=== PATIENT | female | born 1975 | race Caucasian/White ===

== ENCOUNTER 2017-03-07 16:50 | Emergency (ER) | payer OTHER ==
[~2017-03-07] VITALS: Ht 182.9 cm; Wt 109.8 kg
[~2017-03-07 16:50] MED LIST: ADVIN50050 INH; CLON1TAB3 PO; EFFSR150 PO; EFFSR75 PO; SNG10 PO
[2017-03-07 17:03] VITALS: TEMP 36.8; Ht 182.9 cm; Wt 109.8 kg
[2017-03-07] MEDS ORDERED: KETOROLAC TROMETHAMINE 30 MG/ML VIAL IV STA (17:27)
[2017-03-07] MEDS ORDERED: ONDANSETRON INJ 2 MG/ML 2 ML VIAL IV STA ×2 (17:27→19:43)
[2017-03-07 17:51] LABS: BASO % 0.7 %; BASO ABS # 0.07 K/uL (0-0.2); COMPLETE YES; EOS % 2.2 %; HEMATOCRIT 40.4 % (37-47); IG% 0.2 %; LYMPH ABS # 2.59 K/uL (1.2-3.4); MEAN CELL VOLUME 87.6 fL (80-100); MEAN CORPUSCULAR HEMOGLOBIN 30.6 pg (25-34); MEAN CORPUSCULAR HGB CONC 34.9 g/dl (32-36); MEAN PLATELET VOLUME 9.2 fL (7.4-10.4); MONO % 8.6 %; NEUT % 62.3 %; PLATELET COUNT 322 K/uL (130-400); RED BLOOD COUNT 4.61 M/uL (4.2-5.4); WHITE BLOOD COUNT 9.95 K/uL (4.8-10.8)
[2017-03-07 17:57] LABS: URINE APPEARANCE CLEAR (CLEAR); URINE BILIRUBIN NEG (NEG); URINE COLOR YELLOW; URINE EPITHELIAL CELL AUTO 0-5 /lpf (0-5); URINE NITRITE NEG (NEG); URINE PH 5.5 (4.5-7.5); URINE SPECIFIC GRAVITY 1.012 (1.000-1.030); UROBILINOGEN NEG (NEG); ZZUR CULT IF INDIC CLEAN CATCH NO
[2017-03-07 17:58] LABS: MANUAL MICROSCOPIC REQUIRED? NO; REVIEW REQ? NO
[2017-03-07 18:06] LABS: BUN/CREATININE RATIO 23.6 (10-20); CALCIUM 9.3 mg/dl (8.5-10.1); CREATININE 0.9 mg/dl (0.60-1.20); POTASSIUM 3.5 mmol/L (3.5-5.1)
--- NOTE | 2017-03-07 18:14 | DIAGNOSTIC IMAGING REPORT ---
CT SCAN OF THE ABDOMEN AND PELVIS WITHOUT IV CONTRAST CLINICAL HISTORY: Bilateral flank pain. COMPARISON STUDY: Abdominal CT dated 06/03/2007. TECHNIQUE: CT scan of the abdomen and pelvis is performed from the lung bases to the proximal femora. Images are reviewed in the axial, sagittal, and coronal planes. IV contrast was not administered for this examination as per the referring clinician. A dose lowering technique was utilized adhering to the principles of ALARA. CT DOSE: 1468.08 mGy.cm FINDINGS: Lung bases: The heart is normal in size and without pericardial effusion. The lung bases are clear. Liver: The unenhanced liver is normal in size, contour, and attenuation. There is no intrahepatic biliary ductal dilatation. Gallbladder: Surgically absent noting clips in the gallbladder fossa. Spleen: Normal in size and attenuation. Pancreas: Unremarkable. Adrenal glands: Unremarkable. Kidneys: The unenhanced kidneys are normal in size. There is a 4 mm obstructing calculus at the left vesicoureteral junction seen on image #381. There is no associated hydronephrosis. There is an additional punctate nonobstructing calculus in the lower pole of left kidney. There are 2 nonobstructing right renal calculi measuring up to 4 mm. There is no evidence of contour deforming renal mass lesion. Abdominal vasculature: The abdominal aorta is normal in course and caliber. Bowel: There are postoperative changes from subtotal colectomy with ileocolic anastomosis. No bowel obstruction is seen. Peritoneum: There is no intraperitoneal free air or abdominal ascites. There is a fat-containing umbilical hernia. Surgical clips are noted in the retroperitoneum as well as throughout the mesentery. Lymphadenopathy: None. Pelvic viscera: The bladder is decompressed and grossly unremarkable. Uterus and adnexa are normal as visualized. Small ovarian follicles are observed. Skeletal structures: No lytic or blastic lesions are seen. IMPRESSION: 1. There is a 4 mm calculus at the left vesicoureteral junction. There is no associated left-sided hydronephrosis. 2. Additional bilateral nonobstructing renal calculi as above. 3. There are postoperative changes from subtotal colectomy with ileocolic anastomosis. No bowel obstruction is seen. 4. Additional findings as above. Electronically signed by: Juan James M.D. 03/07/2017 6:13 PM Dictated Date/Time: 03/07/2017 6:06 PM
[2017-03-07] MEDS ORDERED: ACETAMINOPHEN IV 100 ML IV STA (18:21)
[2017-03-07] MEDS ORDERED: AMPH30CA3 PO (18:26)
[2017-03-07] MEDS ORDERED: AMPH30TA2 PO (18:27)
[2017-03-07] MEDS ORDERED: DPPRI400 INJ (18:28)
[2017-03-07] MEDS ORDERED: VNTHFA/IN INH (18:30)
[2017-03-07] MEDS ORDERED: TAMS0.4C38 PO (18:31)
[2017-03-07] MEDS ORDERED: NAPR-1169 PO (18:32)
[2017-03-07] MEDS ORDERED: OXYC-57 PO (18:33)
[2017-03-07] MEDS ORDERED: MoRPHine SULFATE 10 MG/ML CARP/VIAL IV STA (19:43)
--- NOTE | 2017-03-07 19:54 | EMERGENCY ROOM VISIT NOTE ---
History First contact with patient: 17:07 Chief Complaint: KIDNEY STONE Stated Complaint: KIDNEY STONES, PAIN, DISTENDED ABDOMEN, NAUSEA History of Present Illness The patient is a 41 year old female who presents to the Emergency Room with complaints of severe bilateral flank pain with history of kidney stone. The patient has been seen at 2 emergency departments in the past 10 days, where she was diagnosed with a kidney stone in the left UVJ. She states the pain has been constant over the past 10 days, but seemed to be worsening tonight. She has been intermittently taking narcotics, and has consistently been taking Flomax and naproxen for her symptoms. She states the naproxen has not been helping, but she is hesitant to take more narcotics, as she is concerned that it makes her too tired and she is unable to work. The patient was initially seen at [facility] emergency department, where a urinalysis showed hematuria. The provider suspected a kidney stone, so discharged her on Flomax and pain medication. Approximately 2 hours later, the patient began experiencing worsening pain, so she went to [facility] [place] emergency room, where a CT scan was performed. The CT scan showed a 4 mm stone in the left UVJ. She was also advised that she has some hydronephrosis and multiple other smaller stones in bilateral kidneys while in the emergency department. She states she was discharged with more pain medication, but states she continues to experience the pain. The patient does not believe that she has passed the stone, and she states now the pain is in the bilateral flanks. She describes it as a constant burning, dull ache, but intermittently becomes very sharp, "like I'm in labor". The patient states this morning, she did have one episode of dysuria. She has also had nausea, decreased appetite, and her abdomen feels full and distended. She does have an appointment scheduled for Tuesday with [facility] urology, but did not feel that she was able to wait. The patient denies obvious hematuria, dysuria, significant pelvic pain, , diarrhea or constipation, chest pain, dyspnea, or other associated symptoms. Review of Systems A complete 10 point review of systems was reviewed with the patient with pertinent positives and negatives as per history of present illness. All else were negative. Past Medical/Surgical History Kidney stones Social History Smoking Status: Current Every Day Smoker Smokeless Tobacco Use: No Alcohol Use: none Drug Use: none Marital Status: single Occupation Status: employed Current/Historical Medications Scheduled Amphetamine-Dextroamphetamine 30MG (Adderall Xr 30MG), 30 MG PO QAM Amphetamine-Dextroamphetamine 30MG (Adderall 30MG), 30 MG PO QAFTERNOON Medroxyprogesterone Acetate (Depo-Provera), 400 MG INJ Q3MO Naproxen (Naprosyn), 500 MG PO BID Ondasetron Odt (Zofran Odt), 4 MG SL Q6H Tamsulosin Hcl (Flomax), 0.4 MG PO DAILY Scheduled PRN Albuterol Hfa (Ventolin Hfa), 2 PUFFS INH Q6H PRN for SOB/Wheezing Oxycodone Ir (Roxicodone Ir), 1-2 TAB PO Q4H PRN for Pain Oxycodone/Acetaminophen 5MG/325MG (Percocet 5MG/325MG), 1 TABLET PO Q6H PRN for Pain Physical Exam Vital Signs Date Time Temp Pulse Resp B/P (MAP) Pulse Ox O2 Delivery O2 Flow Rate FiO2 03/07/17 21:14 78 16 132/72 96 Room Air 03/07/17 19:16 94 16 122/78 99 Room Air 03/07/17 17:42 94 20 142/88 99 Room Air 03/07/17 17:03 36.8 108 18 139/85 100 Room Air Physical Exam VITALS: Vitals are noted on the nurse's note and reviewed by myself. Vital signs stable. GENERAL: This is a 41-year-old white female, in no acute distress, nondiaphoretic, well-developed well-nourished. SKIN: The skin was without rashes, erythema, edema, or bruising. There is no tenting of the skin. Capillary reflex less than 2 seconds. HEAD: Normocephalic atraumatic. EARS: External auditory canals clear, tympanic membranes pearly leyva without erythema or effusion bilaterally. EYES: Pupils equal round and reactive to light and accommodation. Conjunctivae without injection, sclerae without icterus. Extraocular movements intact. NOSE: Patent, turbinates without inflammation or discharge. No sinus tenderness. MOUTH: Mucous membranes moist. Tonsils are not enlarged. Pharynx without erythema or exudate. Uvula midline. Airway patent. Tongue does not deviate. NECK: Supple without nuchal rigidity. No lymphadenopathy. No thyromegaly. Cervical spine is nontender. No JVD. HEART: Regular rate and rhythm without murmurs gallops or rubs. LUNGS: Clear to auscultation bilaterally without wheezes, rales or rhonchi. No dullness to percussion. No retractions or accessory muscle use. ABDOMEN: Positive bowel sounds x 4. Normal tympanic percussion. Soft, nontender, without masses or organomegaly. Alex sign negative. No guarding or rebound tenderness. Positive CVA tenderness on the right. MUSCULOSKELETAL: No muscle atrophy, erythema, or edema noted. Full range of motion without joint tenderness in all extremities. No tenderness to palpation. Normal gait. Strength 5/5 throughout. NEURO: Patient was alert and oriented to person place and time. Normal sensation to light and sharp touch. Deep tendon reflexes 2+ throughout. No focal neurological deficits. Medical Decision & Procedures ER Provider Diagnostic Interpretation: CT SCAN OF THE ABDOMEN AND PELVIS WITHOUT IV CONTRAST CLINICAL HISTORY: Bilateral flank pain. COMPARISON STUDY: Abdominal CT dated 06/03/2007. TECHNIQUE: CT scan of the abdomen and pelvis is performed from the lung bases to the proximal femora. Images are reviewed in the axial, sagittal, and coronal planes. IV contrast was not administered for this examination as per the referring clinician. A dose lowering technique was utilized adhering to the principles of ALARA. CT DOSE: 1468.08 mGy.cm FINDINGS: Lung bases: The heart is normal in size and without pericardial effusion. The lung bases are clear. Liver: The unenhanced liver is normal in size, contour, and attenuation. There is no intrahepatic biliary ductal dilatation. Gallbladder: Surgically absent noting clips in the gallbladder fossa. Spleen: Normal in size and attenuation. Pancreas: Unremarkable. Adrenal glands: Unremarkable. Kidneys: The unenhanced kidneys are normal in size. There is a 4 mm obstructing calculus at the left vesicoureteral junction seen on image #381. There is no associated hydronephrosis. There is an additional punctate nonobstructing calculus in the lower pole of left kidney. There are 2 nonobstructing right renal calculi measuring up to 4 mm. There is no evidence of contour deforming renal mass lesion. Abdominal vasculature: The abdominal aorta is normal in course and caliber. Bowel: There are postoperative changes from subtotal colectomy with ileocolic anastomosis. No bowel obstruction is seen. Peritoneum: There is no intraperitoneal free air or abdominal ascites. There is a fat-containing umbilical hernia. Surgical clips are noted in the retroperitoneum as well as throughout the mesentery. Lymphadenopathy: None. Pelvic viscera: The bladder is decompressed and grossly unremarkable. Uterus and adnexa are normal as visualized. Small ovarian follicles are observed. Skeletal structures: No lytic or blastic lesions are seen. IMPRESSION: 1. There is a 4 mm calculus at the left vesicoureteral junction. There is no associated left-sided hydronephrosis. 2. Additional bilateral nonobstructing renal calculi as above. 3. There are postoperative changes from subtotal colectomy with ileocolic anastomosis. No bowel obstruction is seen. 4. Additional findings as above. Electronically signed by: Juan James M.D. 03/07/2017 6:13 PM Dictated Date/Time: 03/07/2017 6:06 PM CBC without leukocytosis, anemia, thrombocytopenia. PRP without renal or electrolyte abnormalities. U/A showed trace blood without signs of infection. Laboratory Results 03/07/17 17:35 Red Blood Count 4.61, Mean Corpuscular Volume 87.6, Mean Corpuscular Hemoglobin 30.6, Mean Corpuscular Hemoglobin Concent 34.9, Mean Platelet Volume 9.2, Neutrophils (%) (Auto) 62.3, Lymphocytes (%) (Auto) 26.0, Monocytes (%) (Auto) 8.6, Eosinophils (%) (Auto) 2.2, Basophils (%) (Auto) 0.7, Neutrophils # (Auto) 6.19, Lymphocytes # (Auto) 2.59, Monocytes # (Auto) 0.86, Eosinophils # (Auto) 0.22, Basophils # (Auto) 0.07 03/07/17 17:35 Test 03/07/17 17:35 03/07/17 17:36 White Blood Count 9.95 K/uL (4.8-10.8) Red Blood Count 4.61 M/uL (4.2-5.4) Hemoglobin 14.1 g/dL (12.0-16.0) Hematocrit 40.4 % (37-47) Mean Corpuscular Volume 87.6 fL (80-100) Mean Corpuscular Hemoglobin 30.6 pg (25-34) Mean Corpuscular Hemoglobin Concent 34.9 g/dl (32-36) Platelet Count 322 K/uL (130-400) Mean Platelet Volume 9.2 fL (7.4-10.4) Neutrophils (%) (Auto) 62.3 % Lymphocytes (%) (Auto) 26.0 % Monocytes (%) (Auto) 8.6 % Eosinophils (%) (Auto) 2.2 % Basophils (%) (Auto) 0.7 % Neutrophils # (Auto) 6.19 K/uL (1.4-6.5) Lymphocytes # (Auto) 2.59 K/uL (1.2-3.4) Monocytes # (Auto) 0.86 K/uL (0.11-0.59) Eosinophils # (Auto) 0.22 K/uL (0-0.5) Basophils # (Auto) 0.07 K/uL (0-0.2) RDW Standard Deviation 40.9 fL (36.4-46.3) RDW Coefficient of Variation 12.7 % (11.5-14.5) Immature Granulocyte % (Auto) 0.2 % Immature Granulocyte # (Auto) 0.02 K/uL (0.00-0.02) Anion Gap 8.0 mmol/L (3-11) Est Creatinine Clear Calc Drug Dose 115.2 ml/min Estimated GFR () 92.7 Estimated GFR (Non- 80.0 BUN/Creatinine Ratio 23.6 (10-20) Calcium Level 9.3 mg/dl (8.5-10.1) Urine Color YELLOW Urine Appearance CLEAR (CLEAR) Urine pH 5.5 (4.5-7.5) Urine Specific [place] 1.012 (1.000-1.030) Urine Protein NEG (NEG) Urine Glucose (UA) NEG (NEG) Urine Ketones NEG (NEG) Urine Occult Blood TRACE (NEG) Urine Nitrite NEG (NEG) Urine Bilirubin NEG (NEG) Urine Urobilinogen NEG (NEG) Urine Leukocyte Esterase NEG (NEG) Urine WBC (Auto) 1-5 /hpf (0-5) Urine RBC (Auto) 0-4 /hpf (0-4) Urine Hyaline Casts (Auto) 0 /lpf (0-5) Urine Epithelial Cells (Auto) 0-5 /lpf (0-5) Urine Bacteria (Auto) NEG (NEG) Medications Administered Medications (Trade) Dose Ordered Sig/Nicole Route Start Time Stop Time Status Last Admin Dose Admin Ketorolac Tromethamine (Toradol Inj) 30 mg NOW STAT IV 03/07/17 17:27 03/07/17 17:29 DC 03/07/17 17:42 30 MG Ondansetron HCl (Zofran Inj) 4 mg NOW STAT IV 03/07/17 17:27 03/07/17 17:29 DC 03/07/17 17:42 4 MG Acetaminophen 100 ml @ 400 mls/hr NOW STAT IV 03/07/17 18:21 03/07/17 18:35 DC 03/07/17 18:29 400 MLS/HR Morphine Sulfate (MoRPHine SULFATE INJ) 8 mg NOW STAT IV 03/07/17 19:43 03/07/17 19:45 DC 03/07/17 19:57 8 MG Ondansetron HCl (Zofran Inj) 4 mg NOW STAT IV 03/07/17 19:43 03/07/17 19:45 DC 03/07/17 19:58 4 MG Medical Decision The patient presents today complaining of similar left flank pain to what she has been experiencing over the past 10 days associated with a kidney stone. She is concerned because she has had previous kidney stones, all of which have passed within a few days. She states she has not been taking her pain medication consistently, but is instead only taking it when the pain is severe, and is not noticing significant improvement. While in the emergency department , a repeat workup was performed to rule out pyelonephritis, hydronephrosis, or other kidney stones. The repeat CT scan did show a 4 mm stone at the UVJ, and various other stones throughout the bilateral kidneys. There was no hydronephrosis on scan today. I did obtain the CT scan result from [facility], which did show left hydronephrosis with a 3-4 mm calcified stone in the left UVJ region. The patient had only trace blood, no signs of infection on her urinalysis. The patient was initially given 30 mg Toradol through the IV, and noted improvement in her pain from a 9 to a 5. She is appearing much more comfortable, and is able to lie still in bed. Prior to the pain medication, the patient was unable to find a comfortable position, and was up and moving around throughout the room due to the pain. At this time, the patient did request more pain medication, so I did discuss with her options including IV Tylenol versus narcotics. The patient does agree to proceed with some IV Tylenol at this time. I reenter the room, at which point the patient's male friend was at bedside. Prior to being able to talk with the patient, the friend questioned whether we were going to keep the patient here in the emergency department or if we were going to discharge her. I stated that I would like to speak with the patient regarding her wishes. Advised her of her normal labs, and discussed with her the options at this time include [place] for pain management or discharge home with pain medication. The patient states she would like me to contact urology to determine if there are any other treatments she should be completing at this time. I did contact the management and the urologist electronics commodity manager, and after over one hour in multiple attempts to contact him, Dr. Flores did contact me back, and states there are no other treatments necessary at this time for a 4 mm stone, and he did recommend pain medication, Flomax, and fluid treatment. He states the patient could be admitted for pain management, or discharged home with appropriate outpatient follow-up at her scheduled appointment on Tuesday. I did offer admission to the patient for pain control, and she declines. On discussion at bedside regarding options for inpatient versus outpatient treatment. I advised her that there is likely no procedures which will be performed inpatient, and she will be admitted for pain control. I advised her that she would most likely see urology as a consult, but it does appear that her clinical signs are improving. The patient states it [place] very close to [place], and she has children at home to take care of. She would like to go home, as I did discuss with her options for OTC pain management with OxyIR as needed for breakthrough pain. The patient does request IV pain medication prior to discharge, was given 8 mg morphine and 4 mg Zofran. She states this did significantly help with her pain. The patient is in agreement with this plan, and does wish to be discharged. I did speak with Dr. Vega regarding the workup, who is in agreement with the assessment and plan. Differential diagnosis includes ureteral stone, nephrolithiasis, urinary tract infection, pyelonephritis, hydronephrosis, malignancy, and others Medication Reconcilliation Current Medication List: was personally reviewed by me Blood Pressure Screening Patient's blood pressure: Normal blood pressure Impression Primary Impression: Obstruction of right ureteropelvic junction (UPJ) due to stone Departure Information Dispostion Home / Self-Care Condition GOOD Prescriptions Ondasetron Odt (ZOFRAN ODT) 4 Mg Tab 4 MG SL Q6H for Nausea, #6 TAB Prov: Itzel Iqbal PA-C 03/07/17 Oxycodone Ir (Roxicodone Ir) 5 Mg Tab 1-2 TAB PO Q4H Y for Pain, #15 TAB For Initial Treatment Prov: Itzel Iqbal PA-C 03/07/17 Referrals Yuan Christy M.D. (PCP) Patient Instructions ED Stone Renal W Coli, [facility] Additional Instructions You have been treated in the Emergency Department today for a Kidney Stone ( Nephrolithiasis). You have received pain medicine in the emergency department which impairs your ability to operate a vehicle. It is illegal for you to drive after receiving these medicines. You have been prescribed OxyIr to be used for pain control. This is a narcotic medication. You cannot drive or consume alcohol while on this medicine. This medicine should only be used for pain that cannot be controlled with over-the- counter pain medicines. You have been prescribed Zofran to be used for any nausea or vomiting. Take as prescribed. Use the Flomax 0.4 mg ONCE daily as prescribed. This medicine has been prescribed as it can help relax the smooth muscles of the urinary tract increasing transit time of the kidney stone. For pain control, you can use the following [id number] medicines (if >12 yo): Naproxen may be used for fever or pain. Use 500mg every 12 hours as needed. Take with food. Avoid using more than 1000mg in a 24 hour period. Do not use 1000mg per day for more than three consecutive days without physician direction. Prolonged inappropriate use can lead to stomach upset or ulcers. (AND/OR) Acetaminophen(Tylenol) may be used for fever or pain. Use 1000mg every six to eight hours as needed. Avoid using more than 3000mg in a 24 hour period. Follow-up with urology at your scheduled appointment on Tuesday. Return to the ED for worsening/intractable pain, nausea/vomiting. Return to the Emergency Department if your symptoms persist despite the treatment plan outlined above or if you develop the following symptoms: intractable pain, fever, chills, or large amounts of blood in your urine.
[2017-03-07] MEDS ORDERED: OXYC1TAB3 PO (20:55)
[2017-03-07] MEDS ORDERED: ONDA4TAB10 SL (20:55)
[2017-03-07 21:14] VITALS: BP 132/72; PULSE 78; O2SAT 96
== END 2017-03-07 21:25 | disposition home or self-care (01) ==
LOC: C.EDB 16:52 → C.EDA 21:25
DX: N13.5 Crossing vessel and stricture of ureter without hydronephrosis (principal); N20.1 Calculus of ureter; F17.210 Nicotine dependence, cigarettes, uncomplicated; Z79.899 Other long term (current) drug therapy

== ENCOUNTER → 2017-03-11 | Outpatient (CLI) | payer OTHER ==
[~2017-03-11] MED LIST changes: +ACET-1047 PO; -ADVIN50050 INH; +AMPH30CA3 PO; +AMPH30TA2 PO; -CLON1TAB3 PO; +DPPRI400 INJ; +DTR/5 PO; -EFFSR150 PO; -EFFSR75 PO; +IBUP-1450 PO; +NAPR-1169 PO; +ONDA4TAB10 SL; +OXYC-57 PO; +OXYC1TAB3 PO; -SNG10 PO; +SULF800T23 PO; +TAMS0.4C38 PO; +VNTHFA/IN INH
--- NOTE | 2017-03-11 13:52 | DIAGNOSTIC IMAGING REPORT ---
KUB HISTORY: Preoperative exam in a patient with nephrolithiasis. NEPHROLITHIASIS COMPARISON: CT abdomen and pelvis 03/07/2017. FINDINGS: The bowel gas pattern is non-obstructive. Cholecystectomy clips are noted in addition to surgical suture material of the left upper and right midabdomen. The previously noted bilateral nephrolithiasis are not well seen. 4 mm density of the left hemipelvis may correlate with the previous noted left ureterovesicular junction calculus. Phleboliths of the pelvis noted. Renal shadows are partially obscured by bowel gas. There is no organomegaly. No renal calculi. No ureteral calculi. No pneumoperitoneum or pneumatosis. No fracture. IMPRESSION: 1. Renal shadows are partially obscured by bowel gas. Previously noted nephrolithiasis not identified. 2. 4 mm calcification of the left hemipelvis may correlate with previously noted left ureterovesicular junction calculus. Electronically signed by: Arturo Valencia M.D. 03/11/2017 1:50 PM Dictated Date/Time: 03/11/2017 1:43 PM
--- NOTE | 2017-03-11 14:55 | DIAGNOSTIC IMAGING REPORT ---
CHEST 2 VIEWS ROUTINE CLINICAL HISTORY: NEPHROLITHIASIS preoperative evaluation COMPARISON STUDY: No previous studies for comparison. FINDINGS: The bones soft tissues and hemidiaphragms are normal. The cardiomediastinal silhouette is normal. The lungs are clear. The pulmonary vasculature is normal. IMPRESSION: Negative chest. The above report was generated using voice recognition software. It may contain grammatical, syntax or spelling errors. Electronically signed by: Agus Stephenson M.D. 03/11/2017 2:54 PM Dictated Date/Time: 03/11/2017 2:53 PM
== END | disposition home or self-care (01) ==
LOC: C.RAD 12:55
PROVIDERS: ATTEND Urology
DX: N20.0 Calculus of kidney (principal); N28.89 Other specified disorders of kidney and ureter

== ENCOUNTER 2017-03-12 23:09 | Inpatient (IN) | payer OTHER ==
[~2017-03-12] VITALS: Ht 182.9 cm; Wt 113.5 kg
[~2017-03-12 23:09] MED LIST changes: -ACET-1047 PO; -DTR/5 PO; -IBUP-1450 PO; -SULF800T23 PO
[2017-03-12] MEDS ORDERED: HYDROmorphone INJ 0.5 MG/0.5 ML SYR IV STA (23:37)
[2017-03-12] MEDS ORDERED: ONDANSETRON INJ 2 MG/ML 2 ML VIAL IV STA (23:37)
[2017-03-12] MEDS ORDERED: SODIUM CHLORIDE 0.9% 1000ML 1,000 ML IV STA (23:37)
--- NOTE | 2017-03-12 23:38 | EMERGENCY ROOM VISIT NOTE ---
History Report prepared by [place]: Abi Shaw Under the Supervision of: Kirby TrinidadO. First contact with patient: 23:25 Chief Complaint: KIDNEY STONE Stated Complaint: LEFT BACK PAIN, SHARP PAIN R LOWER ABDOMEN,NAUSEA History of Present Illness The patient is a 41 year old female who presents to the Emergency Room with complaints of a kidney stone starting 2 weeks ago. The patient states that she has had a kidney stone for 2 weeks that is 4 mm in size and is stuck between her ureter and bladder on the left side. She reports that she has had kidney stones before, but that this us the worst. She states that her previous stones passed in about 3 days. The patient reports that this is her third one in 16 months. She reports that she has Percocet at home, took one at 1830 which did not help. She states that she is scheduled for a lithotripsy in 2 weeks. The patient reports having vomiting but not fevers. She also reports that she is not urinating as much, and that her urine has been darker but has not had visible blood. Review of EMR: CT scan done March 07 showed a 4 mm stone at the left UVJ. Source of History: patient Onset: 2 weeks ago Position: other (kidney) Quality: other (stone ) Associated Symptoms: + vomiting, + urinary symptoms (not urinating as frequently ), No fevers Review of Systems See HPI for pertinent positives & negatives. A total of 10 systems reviewed and were otherwise negative. Past Medical & Surgical Medical Problems: (1) Depression (2) History of cocaine dependence (3) Kidney stones (4) Nephrolithiasis (5) Pyelonephritis Family History No pertinent family history Social History Smoking Status: Current Every Day Smoker Alcohol Use: none Drug Use: none Marital Status: single Occupation Status: employed Current/Historical Medications Scheduled Amphetamine-Dextroamphetamine 30MG (Adderall Xr 30MG), 30 MG PO QAM Amphetamine-Dextroamphetamine 30MG (Adderall 30MG), 30 MG PO QAFTERNOON Medroxyprogesterone Acetate (Depo-Provera), 400 MG INJ Q3MO Ondasetron Odt (Zofran Odt), 4 MG SL Q6H Tamsulosin Hcl (Flomax), 0.4 MG PO DAILY Scheduled PRN Acetaminophen (Mapap), 650 MG PO Q4H PRN for Pain or Fever Albuterol Hfa (Ventolin Hfa), 2 PUFFS INH Q6H PRN for SOB/Wheezing Ibuprofen (Motrin), 600 MG PO Q6H PRN for Pain Allergies Coded Allergies: Tramadol (Verified Adverse Reaction, Intermediate, N/V, 03/07/17) Physical Exam Vital Signs Date Time Temp Pulse Resp B/P (MAP) Pulse Ox O2 Delivery O2 Flow Rate FiO2 03/12/17 23:15 36.7 85 18 140/80 100 Room Air Physical Exam GENERAL: alert, uncomfortable appearing, well nourished, moderate distress, non- toxic EYE EXAM: normal conjunctiva, PERRL and EOM's grossly intact OROPHARYNX: no exudate, no erythema, lips, buccal mucosa, and tongue normal and mucous membranes are moist NECK: supple, no nuchal rigidity, no adenopathy, non-tender LUNGS: Clear to auscultation. Normal chest wall mechanics HEART: no murmurs, S1 normal and S2 normal ABDOMEN: abdomen soft, non-tender, normo-active bowel sounds, no masses, no rebound or guarding. BACK: Back is symmetrical on inspection and there is no deformity, no midline tenderness, no CVA tenderness. SKIN: no rashes and no bruising UPPER EXTREMITIES: upper extremities are grossly normal. LOWER EXTREMITIES: No pitting edema. NEURO EXAM: Normal sensorium, cranial nerves II-XII intact, normal speech, no weakness of arms, no weakness of legs. Medical Decision & Procedures ER Provider Diagnostic Interpretation: Radiology results have been interpreted by and reviewed by me. KUB X-Ray: Scattered air in stool. Surgical clips noted. No definite radiopaque stone seen. Radiology results have been interpreted by the radiologist and [facility]. US RENAL Nephrolithiasis. A 7 mm stone is seen in the distal left ureter at the UVJ with diminished left bladder jet compared to right and mild left hydronephrosis Laboratory Results Test 03/12/17 23:20 03/12/17 23:30 Urine Color YELLOW Urine Appearance CLEAR (CLEAR) Urine pH 5.0 (4.5-7.5) Urine Specific [place] 1.029 (1.000-1.030) Urine Protein NEG (NEG) Urine Glucose (UA) NEG (NEG) Urine Ketones NEG (NEG) Urine Occult Blood NEG (NEG) Urine Nitrite NEG (NEG) Urine Bilirubin NEG (NEG) Urine Urobilinogen NEG (NEG) Urine Leukocyte Esterase NEG (NEG) Prothrombin Time 10.0 SECONDS (9.0-12.0) Prothromb Time International Ratio 1.0 (0.9-1.1) Total Bilirubin 0.6 mg/dl (0.2-1) Aspartate Amino Transf (AST/SGOT) 26 U/L (15-37) Alanine Aminotransferase (ALT/SGPT) 47 U/L (12-78) Alkaline Phosphatase 185 U/L (45-117) Total Protein 7.7 gm/dl (6.4-8.2) Albumin 4.2 gm/dl (3.4-5.0) Globulin 3.5 gm/dl (2.5-4.0) Albumin/Globulin Ratio 1.2 (0.9-2) Laboratory results per my review. Medications Administered Medications (Trade) Dose Ordered Sig/Nicole Route Start Time Stop Time Status Last Admin Dose Admin Sodium Chloride 1,000 ml @ 999 mls/hr Q1H1M STAT IV 03/12/17 23:37 03/13/17 00:37 DC 03/12/17 23:51 999 MLS/HR Ondansetron HCl (Zofran Inj) 4 mg NOW STAT IV 03/12/17 23:37 03/12/17 23:40 DC 03/12/17 23:48 4 MG Hydromorphone HCl (Dilaudid Inj) 0.5 mg NOW STAT IV 03/12/17 23:37 03/12/17 23:40 DC 03/12/17 23:50 0.5 MG Hydromorphone HCl (Dilaudid Inj) 0.5 mg NOW STAT IV 03/13/17 00:07 03/13/17 00:08 DC 03/13/17 00:12 0.5 MG Acetaminophen (Tylenol Tab) 650 mg Q4H PRN PO 03/13/17 01:45 03/14/17 17:46 DC 03/13/17 14:43 650 MG Ondansetron HCl (Zofran Inj) 4 mg Q6H PRN IV 03/13/17 01:45 03/14/17 17:46 DC 03/13/17 03:27 4 MG ECG Indication: vomiting Rate (beats per minute): 74 Rhythm: sinus rhythm Findings: no acute ischemic change, no ectopy, other (normal axis, normal intervals ) ED Course 2325: The patient was evaluated in room B5. A complete history and physical exam was performed. 2327: Ordered Dilaudid Inj 0.5 mg IV, Zofran Inj 4 mg IV, Sodium Chloride 1,000 ml @ 999 mls/hr IV. 0007: Ordered Dilaudid Inj 0.5 mg IV. 0122: Upon reevaluation, the patient is resting. I discussed the findings and the treatment plan with the patient. She expresses agreement and understanding. I spoke with Dr. Ballard of the [facility] Hospitalist Service. She will be evaluated for further management. Medical Decision Differential diagnosis: Etiologies such as renal colic, appendicitis, diverticulitis, mesenteric ischemia, aortic pathology, infections, inflammatory bowel disease, PUD, biliary pathology, UTI, as well as others were entertained. Pt failing outpt mgmt of renal colic, has seen Dr. Flores urology in the office already. Pt on appropriate meds, however, pain not well controlled and has had vomiting. No renal dysfunction, no evidence of bacteremia/sepsis. Medication Reconcilliation Current Medication List: was personally reviewed by me Blood Pressure Screening Patient's blood pressure: Normal blood pressure Consults Time Called: 49 Consulting Physician: Dr. Ballard- [facility] Returned Call: 012 I reviewed the patient's case with Dr. Ballard. He will evaluate the patient for further management. Impression Primary Impression: Kidney stone Additional Impressions: Renal colic Nausea & vomiting Ureterolithiasis Scribe Attestation The scribe's documentation has been prepared under my direction and personally reviewed by me in its entirety. I confirm that the note above accurately reflects all work, treatment, procedures, and medical decision making performed by me. Departure Information Dispostion Being Evaluated By Hospitalist Prescriptions Ibuprofen (MOTRIN) 600 Mg Tab 600 MG PO Q6H Y for Pain for 10 Days, #40 TAB TAKE WITH FOOD Prov: Chapo Chan MD 03/14/17 Acetaminophen (MAPAP) 325 Mg Tab 650 MG PO Q4H Y for Pain or Fever for 10 Days, #80 TAB Prov: Chapo Chan MD 03/14/17 Referrals Yuan Christy M.D. (PCP) Patient Instructions My [facility] Health Problem Qualifiers Additional Impressions: Nausea & vomiting Vomiting type: unspecified Vomiting Intractability: non-intractable Qualified Codes: R11.2 - Nausea with vomiting, unspecified
[2017-03-12 23:55] LABS: BASO % 0.6 %; BASO ABS # 0.07 K/uL (0-0.2); COMPLETE YES; HEMATOCRIT 40.2 % (37-47); IG% 0.2 %; LYMPH % 24.6 %; LYMPH ABS # 2.79 K/uL (1.2-3.4); MEAN CELL VOLUME 88.2 fL (80-100); MEAN CORPUSCULAR HEMOGLOBIN 30.5 pg (25-34); MEAN CORPUSCULAR HGB CONC 34.6 g/dl (32-36); MEAN PLATELET VOLUME 9.4 fL (7.4-10.4); MONO % 6.3 %; NEUT % 64.3 %; PLATELET COUNT 373 K/uL (130-400); RED BLOOD COUNT 4.56 M/uL (4.2-5.4); WHITE BLOOD COUNT 11.34 K/uL (4.8-10.8)
[2017-03-13] MEDS ORDERED: HYDROmorphone INJ 0.5 MG/0.5 ML SYR IV STA (00:07)
[2017-03-13 00:12] LABS: BUN/CREATININE RATIO 18.3 (10-20); CALCIUM 8.9 mg/dl (8.5-10.1); CREATININE 1.06 mg/dl (0.60-1.20); POTASSIUM 3.9 mmol/L (3.5-5.1)
[2017-03-13 00:16] LABS: ALB/GLOB RATIO 1.2 (0.9-2)
[2017-03-13 00:34] LABS: URINE APPEARANCE CLEAR (CLEAR); URINE BILIRUBIN NEG (NEG); URINE COLOR YELLOW; URINE NITRITE NEG (NEG); URINE SPECIFIC GRAVITY 1.029 (1.000-1.030); UROBILINOGEN NEG (NEG); ZZUR CULT IF INDIC CLEAN CATCH NO
[2017-03-13 00:40] LABS: MANUAL MICROSCOPIC REQUIRED? NO; REVIEW REQ? NO
[2017-03-13] MEDS ORDERED: ZOLPIDEM TARTRATE 5 MG TAB PO PRN ×2 (01:45)
[2017-03-13] MEDS ORDERED: ONDANSETRON INJ 2 MG/ML 2 ML VIAL IV PRN (01:45)
[2017-03-13] MEDS ORDERED: ALUMINUM/MAGNESIUM/SIMETH (MAALOX MAX) 30 ML UDC PO PRN (01:45)
[2017-03-13] MEDS ORDERED: MAGNESIUM HYDROXIDE SUSP 30 ML UDC PO PRN (01:45)
[2017-03-13] MEDS ORDERED: POLYETHYLENE (MIRALAX) 17 GM PACK PO PRN (01:45)
--- NOTE | 2017-03-13 02:04 | History and Physical ---
History & Physical Date & Time of Service: Mar 13, 2017 at 01:35 Chief Complaint: Left Back Pain, Sharp Pain R Lower Abdomen,Nausea Primary Care Physician: Yuan Christy M.D. History of Present Illness Source: patient, parent, partner, clinic records, hospital records 41F p/w intractable Left Flank pain and colicky abdominal pain x [address] Scan on the showed a 4mm left uretopelvic junction that she was trying to manage with PO medication. (NSAIDS, Tylenol and Oxycodone). The pain got to the point where she cannot tolerate it. The left flank pain is constant and she states it feels like her kidney is in a vice. She also gets sharp stabbing pains on her left abdomen. She had an appointment with Dr. Flores in two weeks for stone removal . She's had several kidney stones in the past that have all passed on their own. At present she states that the colicky pain is 5/10 on her IV Pain medication and the left flank pain is 3/10. The pain is much improved. Past Medical/Surgical History Medical Problems: (1) Kidney stones Status: Resolved Family History No pertinent family history Social History Smoking Status: Current Every Day Smoker Smokeless Tobacco Use: No Alcohol Use: none Drug Use: none Marital Status: single Occupational Status: employed Immunizations History of Influenza Vaccine: No History of Tetanus Vaccine?: Yes Tetanus Immunization Date: May 31, 1998 History of Pneumococcal: No History of Hepatitis B Vaccine: No Multi-Drug Resistant Organisms History of MDRO: No Allergies Coded Allergies: Tramadol (Verified Adverse Reaction, Intermediate, N/V, 03/07/17) Home Medications Scheduled Amphetamine-Dextroamphetamine 30MG (Adderall Xr 30MG), 30 MG PO QAM Amphetamine-Dextroamphetamine 30MG (Adderall 30MG), 30 MG PO QAFTERNOON Medroxyprogesterone Acetate (Depo-Provera), 400 MG INJ Q3MO Naproxen (Naprosyn), 500 MG PO BID Ondasetron Odt (Zofran Odt), 4 MG SL Q6H Tamsulosin Hcl (Flomax), 0.4 MG PO DAILY Scheduled PRN Albuterol Hfa (Ventolin Hfa), 2 PUFFS INH Q6H PRN for SOB/Wheezing Oxycodone Ir (Roxicodone Ir), 1-2 TAB PO Q4H PRN for Pain Oxycodone/Acetaminophen 5MG/325MG (Percocet 5MG/325MG), 1 TABLET PO Q6H PRN for Pain Review of Systems Constitutional: No fever, No chills Cardiovascular: No chest pain Abdomen: + pain, + vomiting, No diarrhea, No constipation Musculoskeletal: No joint pain Physical Exam Vital Signs Date Time Temp Pulse Resp B/P (MAP) Pulse Ox O2 Delivery O2 Flow Rate FiO2 03/12/17 23:15 36.7 85 18 140/80 100 Room Air General Appearance: WD/WN, + mild distress Head: normocephalic, atraumatic Eyes: PERRL, EOMI ENT: normal ENT inspection Neck: supple, no adenopathy Respiratory/Chest: chest non-tender, lungs clear, normal breath sounds, no respiratory distress, no accessory muscle use Cardiovascular: regular rate, rhythm, no edema, no gallop, no JVD, no murmur, normal peripheral pulses Abdomen/GI: normal bowel sounds, soft, no organomegaly, no pulsatile mass, + pertinent finding (tenderness to deep palpation of the left middle quadrant of the abdomen. ) Back: + left CVA tenderness (pt jumps to light palpation of the area) Extremities/Musculoskelatal: no pedal edema Neurologic/Psych: associate professor of management II-XII nml as tested, no motor/sensory deficits, alert, normal mood/affect, normal reflexes, oriented x 3 Diagnostics Laboratory Results Results Past 24 Hours Test 03/12/17 23:20 03/12/17 23:30 Range/Units Urine Color YELLOW Urine Appearance CLEAR CLEAR Urine pH 5.0 4.5-7.5 Urine Specific [place] 1.029 1.000-1.030 Urine Protein NEG NEG Urine Glucose (UA) NEG NEG Urine Ketones NEG NEG Urine Occult Blood NEG NEG Urine Nitrite NEG NEG Urine Bilirubin NEG NEG Urine Urobilinogen NEG NEG Urine Leukocyte Esterase NEG NEG White Blood Count 11.34 4.8-10.8 K/uL Red Blood Count 4.56 4.2-5.4 M/uL Hemoglobin 13.9 12.0-16.0 g/dL Hematocrit 40.2 37-47 % Mean Corpuscular Volume 88.2 80-100 fL Mean Corpuscular Hemoglobin 30.5 25-34 pg Mean Corpuscular Hemoglobin Concent 34.6 32-36 g/dl Platelet Count 373 130-400 K/uL Mean Platelet Volume 9.4 7.4-10.4 fL Neutrophils (%) (Auto) 64.3 % Lymphocytes (%) (Auto) 24.6 % Monocytes (%) (Auto) 6.3 % Eosinophils (%) (Auto) 4.0 % Basophils (%) (Auto) 0.6 % Neutrophils # (Auto) 7.30 1.4-6.5 K/uL Lymphocytes # (Auto) 2.79 1.2-3.4 K/uL Monocytes # (Auto) 0.71 0.11-0.59 K/uL Eosinophils # (Auto) 0.45 0-0.5 K/uL Basophils # (Auto) 0.07 0-0.2 K/uL RDW Standard Deviation 41.9 36.4-46.3 fL RDW Coefficient of Variation 13.1 11.5-14.5 % Immature Granulocyte % (Auto) 0.2 % Immature Granulocyte # (Auto) 0.02 0.00-0.02 K/uL Prothrombin Time 10.0 9.0-12.0 SECONDS Prothromb Time International Ratio 1.0 0.9-1.1 Sodium Level 138 136-145 mmol/L Potassium Level 3.9 3.5-5.1 mmol/L Chloride Level 109 98-107 mmol/L Carbon Dioxide Level 23 21-32 mmol/L Anion Gap 7.0 3-11 mmol/L Blood Urea Nitrogen 19 7-18 mg/dl Creatinine 1.06 0.60-1.20 mg/dl Est Creatinine Clear Calc Drug Dose 99.4 ml/min Estimated GFR () 76.1 Estimated GFR (Non- 65.6 BUN/Creatinine Ratio 18.3 10-20 Random Glucose 86 70-99 mg/dl Calcium Level 8.9 8.5-10.1 mg/dl Total Bilirubin 0.6 0.2-1 mg/dl Aspartate Amino Transf (AST/SGOT) 26 15-37 U/L Alanine Aminotransferase (ALT/SGPT) 47 12-78 U/L Alkaline Phosphatase 185 45-117 U/L Total Protein 7.7 6.4-8.2 gm/dl Albumin 4.2 3.4-5.0 gm/dl Globulin 3.5 2.5-4.0 gm/dl Albumin/Globulin Ratio 1.2 0.9-2 Impression Assessment and Plan 41F p/w intractable Left Flank pain and colicky abdominal pain x 2 weeks. STAT Rad on the Renal US shows a 7mm stone in the Left Uretero Vesicular Junction with evidence of left hydronephrosis. Pt will be admitted for IV Pain medication and IV Cipro, made NPO and Urology will be consulted. 7mm Left Kidney Stone at the Uterovesicular junction Pain control with 1mg IV Dilaudid Q2H PRN. Dr. Flores Urology Consulted. c/w Tamsulosin 0.4mg Zofran 4mg ODT PRN nausea. Evidence of Left Pyelonephritis Afebrile, elevated WBC. 10/10 left CVA tenderness to light palpation. Started on IV Cipro 400mg BID, Day #1 Monitor WBC and fever curve. ADHD c/w home Adderall. Diet: NPO except meds, IVF of NSS at 75mls/hr. Dispo: Med Surg, do not anticipate DC needs. DVT Proph: Hep SQ BID, FULL CODE Attending addendum: I have physically seen this patient, have supervised the medical residents activities, and agree with the H&P unless as otherwise noted. Assessment and Plan: 7 mm left ureterovesicular junction kidney stone/left hydronephrosis-- Admit to the medical surgical floor Nothing by mouth status Dilaudid 1 mg IV every 2 hours when necessary Cipro 40 mg IV twice a day Continue tamsulosin 0.4 mg by mouth at bedtime Zofran when necessary nausea ADHD-- On Adderall Consult urology Dr. Flores Level of Care Med/Surg Advanced Directives Existing Advance Directive: No Existing Living Will: No Existing Power of Supervisor Shuttle Veneering: No Resuscitation Status FULL RESUSCITATION VTE Prophylaxis VTE Risk Assessment Done? Y/N: Yes Risk Level: Low Social Service Consult None Apply Resident Involvement: Resident Care Provided Care Provided: Adult Hospital Medicine
[2017-03-13] MEDS ORDERED: ALBUTEROL HFA 8 GM INHALER INH PRN (02:15)
[2017-03-13] MEDS ORDERED: ONDANSETRON 4MG OD TAB SL PRN (02:15)
[2017-03-13 02:50] VITALS: BP 136/87; PULSE 87; TEMP 37.1; O2SAT 100; Ht 182.9 cm; Wt 113.5 kg
[2017-03-13] MEDS: HYDROmorphone INJ 1 MG/ML SYR IV PRN ×2 (03:30→07:16)
[2017-03-13] MEDS: SODIUM CHLORIDE 0.9% 1000ML 1,000 ML IV SCH ×2 (03:34→15:05)
[2017-03-13] MEDS: CIPROFLOXACIN / D5W 400 MG in PREMIXED IN D5W 200 ML IV SCH ×2 (04:49→15:32)
--- NOTE | 2017-03-13 05:53 | DIAGNOSTIC IMAGING REPORT ---
KUB CLINICAL HISTORY: 41 years-old Female presenting with left ureterolithiasis. TECHNIQUE: Single supine view of the abdomen was obtained. COMPARISON: CT from 03/07/2017 and KUB from 03/11/2017. FINDINGS: Cholecystectomy clips. Additional few surgical clips elsewhere in the abdomen. Nonobstructive bowel gas pattern. No gross pneumoperitoneum. Allowing for bowel gas and stool, no radiographically apparent calcifications project over the renal shadows. The recently noted calcification in the region of the left ureterovesical junction is no longer visualized. Right hemipelvis phlebolith again noted. Degenerative changes of the pubic symphysis. Lung bases clear. IMPRESSION: 1. Previously noted calcification in the region of the left ureterovesical junction is not radiographically apparent. 2. Previously noted bilateral nephrolithiasis on CT from 03/07/2017 is not radiographically apparent. Electronically signed by: Bobo Mancilla M.D. 03/13/2017 5:51 AM Dictated Date/Time: 03/13/2017 5:49 AM
--- NOTE | 2017-03-13 06:11 | DIAGNOSTIC IMAGING REPORT ---
(RENAL)RETROPERITON COMP CLINICAL HISTORY: 41 years-old Female presenting with left uvj stone. TECHNIQUE: Real-time grayscale and limited color Doppler ultrasound imaging of the kidneys and bladder was performed. COMPARISON: KUB performed earlier the same day and CT from 03/07/2017. FINDINGS: Right kidney: Normal echogenicity. Right kidney measures 11.5 cm. No hydronephrosis. Hyperechogenic 5 mm focus with twinkling artifact suggesting calculus at the lower pole with similar appearing focus at the upper pole. Normal perfusion. Left kidney: Normal echogenicity. Left kidney measures 11.9 cm. Mild pelvocaliectasis. 7 mm hyperechogenic focus with twin-twin artifact suggesting calculus at the lower pole. However, no such sizable calculus was evident on CT. This may represent prominent renal sinus fat. Normal perfusion. Bladder: The left ureteral jet is not as robust as on the right. Bladder otherwise normal. A 7 mm calculus is visualized at the left ureterovesical junction. Other: None. IMPRESSION: 1. Mild left hydronephrosis with an obstructing calculus at the left ureterovesical junction as seen on recent CT. The calculus has not passed despite nonvisualization on radiograph. 2. Right renal calculi. Electronically signed by: Bobo Mancilla M.D. 03/13/2017 6:10 AM Dictated Date/Time: 03/13/2017 6:07 AM
[2017-03-13 07:00] VITALS: BP 107/69; PULSE 77; TEMP 36.9; O2SAT 97
[2017-03-13 07:27] LABS: BASO % 1.1 %; BASO ABS # 0.07 K/uL (0-0.2); COMPLETE YES; EOS % 5.9 %; HEMATOCRIT 35.3 % (37-47); IG% 0.2 %; LYMPH % 32.2 %; LYMPH ABS # 1.97 K/uL (1.2-3.4); MEAN CELL VOLUME 88.3 fL (80-100); MEAN CORPUSCULAR HEMOGLOBIN 29.8 pg (25-34); MEAN CORPUSCULAR HGB CONC 33.7 g/dl (32-36); MEAN PLATELET VOLUME 9.2 fL (7.4-10.4); MONO % 8.3 %; NEUT % 52.3 %; PLATELET COUNT 289 K/uL (130-400); WHITE BLOOD COUNT 6.11 K/uL (4.8-10.8)
[2017-03-13 07:56] LABS: BUN/CREATININE RATIO 18.2 (10-20); CREATININE 0.87 mg/dl (0.60-1.20); POTASSIUM 3.8 mmol/L (3.5-5.1)
[2017-03-13] MEDS ORDERED: HEPARIN SOD 5000 UNIT/0.5 ML CARP SQ SCH (09:00)
[2017-03-13] MEDS: TAMSULOSIN HCL 0.4 MG CAP PO SCH (09:18)
[2017-03-13] MEDS: KETOROLAC TROMETHAMINE 30 MG/ML VIAL IV PRN ×3 (09:19→23:27)
[2017-03-13] MEDS: ACETAMINOPHEN 325 MG TAB PO PRN ×2 (09:21→14:43)
--- NOTE | 2017-03-13 09:35 | Urology Consultation ---
History General Date of Service: Mar 13, 2017. Primary Care Physician: Yuan Christy M.D. Pt seen a urologist before?: Yes If yes, why?: nephrolithiasis History of Present Illness 41y/o female with intermittent L flank pain for the past 1-2 weeks - seen by Dr. Carbajal on Tuesday, unfortunately, pain progressed and she returned to the ER overnight - CT: L UVJ stone, punctate stone in the left kidney; 2 small stones in the right kidney - KUB (stones not clearly visible) - US - hydro (overestimated stone burden) - afebrile - pain present, but tolerable with meds - mild nausea - reports she has passed stones on 2 prior occasions Imaging Imaging: CT, KUB, Ultrasound Laboratory Labs were reviewed and are within normal limits unless listed below. Labs are available in the chart and at [facility] Problem List Medical Problems: (1) Kidney stone Status: Acute (2) Nausea & vomiting Status: Acute (3) Obstruction of right ureteropelvic junction (UPJ) due to stone Status: Acute (4) Renal colic Status: Acute (5) Ureterolithiasis Status: Acute Past History asthma, kidney stones, other Past Surgical History: no surgical history Family History No pertinent family history Social History Hx Tobacco Use In Past Year?: Yes (Half pack of cigarettes every day) Marital status: single Occupation status: employed Immunizations History of Influenza Vaccine: No History of Tetanus Vaccine?: Yes Tetanus Immunization Date: May 31, 1998 History of Pneumococcal: No History of Hepatitis B Vaccine: No History of MDRO No Allergies Coded Allergies: Tramadol (Verified Adverse Reaction, Intermediate, N/V, 03/07/17) Medications Home Medications: Home Meds and Scripts Medications Dose Route/Sig Max Daily Dose Days Date Category Dose Instructions Zofran Odt (Ondansetron HCl) 4 Mg Tab 4 Mg SL Q6H 03/07/17 Rx Roxicodone Ir (Oxycodone HCl) 5 Mg Tab 1-2 Tab PO Q4H PRN 03/07/17 Rx For Initial Treatment Percocet 5MG/325MG (Oxycodone/Acetaminophen) Tab 1 Tablet PO Q6H PRN 03/07/17 Reported PAIN Naprosyn (Naproxen) 500 Mg Tab 500 Mg PO BID 03/07/17 Reported Flomax (Tamsulosin Hcl) 0.4 Mg Cap 0.4 Mg PO DAILY 03/07/17 Reported Ventolin Hfa (Albuterol) 200 Puffs/37530 Mcg Aers 2 Puffs INH Q6H PRN 03/07/17 Reported Depo-Provera (Medroxyprogesterone Acetate) 400 Mg/Ml Inj 400 Mg INJ Q3MO 03/07/17 Reported Adderall 30MG (Amphetamine-Dextroamphetamine 30MG) 1 Tab Tab 30 Mg PO QAFTERNOON 03/07/17 Reported Adderall Xr 30MG (Amphetamine-Dextroamphetamine 30MG) 1 Cap Cap 30 Mg PO QAM 03/07/17 Reported Inpatient Medications: Current Inpatient Medications Medications (Trade) Dose Ordered Sig/Nicole Route Start Time Stop Time Status Last Admin Dose Admin Acetaminophen (Tylenol Tab) 650 mg Q4H PRN PO 03/13/17 01:45 04/12/17 01:44 03/13/17 09:21 650 MG Al Hydrox/Mg Hydrox/Simethicone (Maalox Max Susp) 15 ml Q4H PRN PO 03/13/17 01:45 04/12/17 01:44 Magnesium Hydroxide (Milk Of Magnesia Susp) 30 ml Q6H PRN PO 03/13/17 01:45 04/12/17 01:44 Polyethylene (Miralax Powder Packet) 17 gm DAILY PRN PO 03/13/17 01:45 04/12/17 01:44 Zolpidem Tartrate (Ambien Tab) 5 mg HSZ PRN PO 03/13/17 01:45 04/12/17 01:44 Ondansetron HCl (Zofran Inj) 4 mg Q6H PRN IV 03/13/17 01:45 04/12/17 01:44 03/13/17 03:27 4 MG Ciprofloxacin/ Dextrose 400 mg/ Prmx 200 ml @ 100 mls/hr Q12H IV 03/13/17 04:00 03/23/17 03:59 03/13/17 04:49 100 MLS/HR Sodium Chloride 1,000 ml @ 80 mls/hr [id number] IV 03/13/17 03:30 04/12/17 03:29 03/13/17 03:34 80 MLS/HR Hydromorphone HCl (Dilaudid Inj) 1 mg Q2H PRN IV 03/13/17 02:00 03/27/17 01:59 03/13/17 07:16 1 MG Albuterol (Ventolin Hfa Inhaler) 2 puffs Q6H PRN INH 03/13/17 02:15 04/12/17 02:14 Ondansetron HCl (Zofran Odt) 4 mg Q6H PRN SL 03/13/17 02:15 04/12/17 02:14 Tamsulosin HCl (Flomax Cap) 0.4 mg DAILY PO 03/13/17 09:00 04/12/17 08:59 03/13/17 09:18 0.4 MG Miscellaneous Information (Order Awaiting Action) 1 ea QS N/A 03/13/17 08:00 04/12/17 07:59 Ketorolac Tromethamine (Toradol Inj) 30 mg Q6H PRN IV 03/13/17 06:45 03/18/17 06:44 03/13/17 09:19 30 MG Review of Systems Review of Systems Constitutional: No see HPI, No fever, No chills, No frequent headaches, No weight loss, No problem reported Eyes: No see HPI, No blurred vision, No double vision, No eye pain, No loss of night vision, No problem reported Neurological: No see HPI, No dizzy, No passing out, No numbness/tingling, No seizures, No problem reported Gastrointestinal: + abdominal pain, + nausea Cardiovascular: No see HPI, No heart murmur, No chest pain, No angina, No irregular heartbeat, No palpitations, No swelling ankles/feet, No problem reported Respiratory: No see HPI, No shortness of breath, No wheezing, No coughing up blood, No chronic cough, No problem reported Skin: No see HPI, No rash, No boils, No dry skin, No problem reported Musculoskeletal: No see HPI, No joint pain, No neck pain, No back pain, No arthritis, No problem reported Blood / Lymphatic: No see HPI, No bleed easily, No bruise easily, No swollen glands, No problem reported Ears / Nose / Throat: No see HPI, No hearing loss, No sinus, No hoarse voice, No sore throat, No problem reported Psychologic / Mental: No see HPI, No nervous, No trouble remembering, No difficulty sleeping, No problem reported Female : + kidney stones All Other Systems: Reviewed and Negative Physical Exam Vital Signs: Vital Signs Past 12 Hours Date Time Temp Pulse Resp B/P (MAP) Pulse Ox O2 Delivery O2 Flow Rate FiO2 03/13/17 07:00 36.9 77 18 107/69 (82) 97 Room Air 03/13/17 02:50 37.1 87 16 136/87 100 Room Air 03/13/17 02:20 69 16 130/71 96 03/12/17 23:15 36.7 85 18 140/80 100 Room Air Physical Exam: General Appearance: WD/WN, no apparent distress Eyes: bilateral eyes normal inspection ENT: hearing grossly normal Neck: supple Respiratory/Chest: no respiratory distress, no accessory muscle use Cardiovascular: regular rate, rhythm Gastrointestinal: Abdomen: normal abdomen Renal: normal renal (moderately tender on the left) Extremities: non-tender Neurologic/Psychiatric: alert, normal mood/affect, oriented x 3 Skin: warm/dry Lymphatic: no adenopathy Assessment & Plan Assessment & Plan Nephrolithiasis - symptomatic left distal ureteral stones - we have discussed different options - recommended intervention - she agrees, however, OR schedule logistics appear to make tomorrow the ideal option - will advance diet now, make NPO after MN - consent on the chart for cysto, L URS/LL, stent
--- NOTE | 2017-03-13 10:44 | Family Medicine Progress Note ---
Progress Note Date of Service Mar 13, 2017. Subjective Pt evaluation today including: conversation w/ patient Pain: 2 PO Intake: WNL Voiding: no voiding problems Patient states that her pain is under improved control, no dysuria or hematuria at this time ongoing left sided flank pain but generally improved discussed plan with patient and she reflected understanding Constitutional: No fever Eyes: No worsening of vision ENT: No hearing loss Respiratory: No cough, No sputum, No wheezing, No shortness of breath, No dyspnea on exertion Cardiovascular: No chest pain Abdomen: No pain, No nausea, No vomiting, No diarrhea, No constipation Musculoskeletal: + problem reported (left flank pain ), No joint pain, No muscle pain Female : No dysuria, No urinary frequency, No hematuria, No incontinence Neurologic: No memory loss, No weakness, No balance problems Psychiatric: No depression symptoms, No anxiety Heme: No abnormal bleeding/bruising Endo: No fatigue Skin: No rash Medications Medications Administered Medications (Trade) Dose Ordered Sig/Nicole Route Start Time Stop Time Status Last Admin Dose Admin Sodium Chloride 1,000 ml @ 999 mls/hr Q1H1M STAT IV 03/12/17 23:37 03/13/17 00:37 DC 03/12/17 23:51 999 MLS/HR Ondansetron HCl (Zofran Inj) 4 mg NOW STAT IV 03/12/17 23:37 03/12/17 23:40 DC 03/12/17 23:48 4 MG Hydromorphone HCl (Dilaudid Inj) 0.5 mg NOW STAT IV 03/12/17 23:37 03/12/17 23:40 DC 03/12/17 23:50 0.5 MG Hydromorphone HCl (Dilaudid Inj) 0.5 mg NOW STAT IV 03/13/17 00:07 03/13/17 00:08 DC 03/13/17 00:12 0.5 MG Acetaminophen (Tylenol Tab) 650 mg Q4H PRN PO 03/13/17 01:45 04/12/17 01:44 03/13/17 09:21 650 MG Ondansetron HCl (Zofran Inj) 4 mg Q6H PRN IV 03/13/17 01:45 04/12/17 01:44 03/13/17 03:27 4 MG Ciprofloxacin/ Dextrose 400 mg/ Prmx 200 ml @ 100 mls/hr Q12H IV 03/13/17 04:00 03/23/17 03:59 03/13/17 04:49 100 MLS/HR Sodium Chloride 1,000 ml @ 80 mls/hr [id number] IV 03/13/17 03:30 04/12/17 03:29 03/13/17 03:34 80 MLS/HR Hydromorphone HCl (Dilaudid Inj) 1 mg Q2H PRN IV 03/13/17 02:00 03/27/17 01:59 03/13/17 07:16 1 MG Tamsulosin HCl (Flomax Cap) 0.4 mg DAILY PO 03/13/17 09:00 04/12/17 08:59 03/13/17 09:18 0.4 MG Ketorolac Tromethamine (Toradol Inj) 30 mg Q6H PRN IV 03/13/17 06:45 03/18/17 06:44 03/13/17 09:19 30 MG Objective Vital Signs Date Time Temp Pulse Resp B/P (MAP) Pulse Ox O2 Delivery O2 Flow Rate FiO2 03/13/17 07:00 36.9 77 18 107/69 (82) 97 Room Air 03/13/17 02:50 37.1 87 16 136/87 100 Room Air 03/13/17 02:20 69 16 130/71 96 03/12/17 23:15 36.7 85 18 140/80 100 Room Air Physical Exam General Appearance: no apparent distress Eyes: normal inspection ENT: normal ENT inspection Neck: supple Respiratory/Chest: normal breath sounds, no respiratory distress, no accessory muscle use Cardiovascular: regular rate, rhythm, no murmur Abdomen: normal bowel sounds, non tender, soft, + pertinent finding (positive left CVA tenderness) Extremities: normal range of motion, non-tender, normal inspection, no pedal edema, no calf tenderness Neurologic/Psychiatric: alert, normal mood/affect, oriented x 3 Skin: normal color, warm/dry, no rash Lymphatic: no adenopathy Laboratory Results Results Past 24 Hours Test 03/12/17 23:20 03/12/17 23:30 03/13/17 06:58 Range/Units Urine Color YELLOW Urine Appearance CLEAR CLEAR Urine pH 5.0 4.5-7.5 Urine Specific [place] 1.029 1.000-1.030 Urine Protein NEG NEG Urine Glucose (UA) NEG NEG Urine Ketones NEG NEG Urine Occult Blood NEG NEG Urine Nitrite NEG NEG Urine Bilirubin NEG NEG Urine Urobilinogen NEG NEG Urine Leukocyte Esterase NEG NEG White Blood Count 11.34 6.11 4.8-10.8 K/uL Red Blood Count 4.56 4.00 4.2-5.4 M/uL Hemoglobin 13.9 11.9 12.0-16.0 g/dL Hematocrit 40.2 35.3 37-47 % Mean Corpuscular Volume 88.2 88.3 80-100 fL Mean Corpuscular Hemoglobin 30.5 29.8 25-34 pg Mean Corpuscular Hemoglobin Concent 34.6 33.7 32-36 g/dl Platelet Count 373 289 130-400 K/uL Mean Platelet Volume 9.4 9.2 7.4-10.4 fL Neutrophils (%) (Auto) 64.3 52.3 % Lymphocytes (%) (Auto) 24.6 32.2 % Monocytes (%) (Auto) 6.3 8.3 % Eosinophils (%) (Auto) 4.0 5.9 % Basophils (%) (Auto) 0.6 1.1 % Neutrophils # (Auto) 7.30 3.19 1.4-6.5 K/uL Lymphocytes # (Auto) 2.79 1.97 1.2-3.4 K/uL Monocytes # (Auto) 0.71 0.51 0.11-0.59 K/uL Eosinophils # (Auto) 0.45 0.36 0-0.5 K/uL Basophils # (Auto) 0.07 0.07 0-0.2 K/uL RDW Standard Deviation 41.9 41.6 36.4-46.3 fL RDW Coefficient of Variation 13.1 12.9 11.5-14.5 % Immature Granulocyte % (Auto) 0.2 0.2 % Immature Granulocyte # (Auto) 0.02 0.01 0.00-0.02 K/uL Prothrombin Time 10.0 9.0-12.0 SECONDS Prothromb Time International Ratio 1.0 0.9-1.1 Sodium Level 138 142 136-145 mmol/L Potassium Level 3.9 3.8 3.5-5.1 mmol/L Chloride Level 109 112 98-107 mmol/L Carbon Dioxide Level 23 24 21-32 mmol/L Anion Gap 7.0 6.0 3-11 mmol/L Blood Urea Nitrogen 19 16 7-18 mg/dl Creatinine 1.06 0.87 0.60-1.20 mg/dl Est Creatinine Clear Calc Drug Dose 99.4 121.1 ml/min Estimated GFR () 76.1 96.6 Estimated GFR (Non- 65.6 83.3 BUN/Creatinine Ratio 18.3 18.2 10-20 Random Glucose 86 86 70-99 mg/dl Calcium Level 8.9 8.0 8.5-10.1 mg/dl Total Bilirubin 0.6 0.2-1 mg/dl Aspartate Amino Transf (AST/SGOT) 26 15-37 U/L Alanine Aminotransferase (ALT/SGPT) 47 12-78 U/L Alkaline Phosphatase 185 45-117 U/L Total Protein 7.7 6.4-8.2 gm/dl Albumin 4.2 3.4-5.0 gm/dl Globulin 3.5 2.5-4.0 gm/dl Albumin/Globulin Ratio 1.2 0.9-2 Assessment and Plan 41F p/w intractable Left Flank pain and colicky abdominal pain x 2 weeks. Patient was recently diagnosed with nephrolithiasis and was arranged to have an outpatient lithotripsy in 2 weeks. Patient failed outpatient treatment and was admitted for intervention and pain control. 7mm Left Kidney Stone at the Uterovesicular junction Pain control with Toradol 30 mg q 6h and cut down IV Dilaudid to 0.5 mg Q6H PRN for severe pain. - urology consulted- plan for intervention tomorrow and NPO after midnight - Tamsulosin 0.4mg cont'd - strain urine - Zofran 4mg ODT PRN nausea. - NSS @ 80cc/h - Cipro 400 mg bid empirically- UA WNL ADHD - Adderall held while on inpatient Diet: Can eat today with NPO after midnight Dispo: Med Surg, d/c possibly tomorrow if intervention is uncomplicated DVT Proph: Hep SQ BID held until after intervention, SCD and encouragement of ambulation until tomorrow FULL CODE Continued [facility] stay due to: inadequate oral pain control Discharge planning: home Reviewed: Pt Seen/Exam by Me History pain well controlled this am Constitutional: denies: fever Respiratory: negative: short of breath Cardiovascular: denies chest pain General Appearance: no apparent distress Respiratory: lungs clear, no respiratory distress Cardiovascular: regular rate, rhythm Neurologic/Psychiatric: alert, abnormal cerebellar tests Skin Characteristics: warm/dry Assessment/Plan Resident Physician Supervision Note: I independently interviewed and examined the patient and verified the khan history and physical, reviewed labs and image studies, discussed the case with the resident Dr. Acosta and agree with the findings and care plan.
[2017-03-13] MEDS: HYDROmorphone INJ 0.5 MG/0.5 ML SYR IV PRN ×2 (12:51→19:22)
[2017-03-13] MEDS ORDERED: AMPHETAMINE ASP/SULF/DEXTRAMPH 10 MG TAB PO SCH (14:00)
[2017-03-13] MEDS ORDERED: OXYBUTYNIN CHLORIDE 5 MG TAB PO ONE (14:18)
[2017-03-13 15:43] VITALS: BP 119/72; PULSE 63; TEMP 36.9; O2SAT 99
[2017-03-13] MEDS: OXYBUTYNIN CHLORIDE 5 MG TAB PO SCH (20:33)
[2017-03-13 23:25] VITALS: BP 122/77; PULSE 73; TEMP 36.8; O2SAT 95
[2017-03-14] MEDS: SODIUM CHLORIDE 0.9% 1000ML 1,000 ML IV SCH ×2 (03:59→16:04)
[2017-03-14] MEDS: CIPROFLOXACIN / D5W 400 MG in PREMIXED IN D5W 200 ML IV SCH ×2 (03:59→16:04)
[2017-03-14 07:13] LABS: BASO % 1.1 %; BASO ABS # 0.06 K/uL (0-0.2); COMPLETE YES; HEMATOCRIT 35.5 % (37-47); IG% 0.2 %; LYMPH % 33.5 %; MEAN CELL VOLUME 88.8 fL (80-100); MEAN CORPUSCULAR HEMOGLOBIN 30.3 pg (25-34); MEAN CORPUSCULAR HGB CONC 34.1 g/dl (32-36); MEAN PLATELET VOLUME 9.3 fL (7.4-10.4); MONO % 8.2 %; PLATELET COUNT 284 K/uL (130-400); WHITE BLOOD COUNT 5.37 K/uL (4.8-10.8)
--- NOTE | 2017-03-14 07:38 | Progress Note ---
Subjective Date of Service: Mar 14, 2017. Subjective Pt evaluation today including: conversation w/ patient, chart review, lab review Voiding: no voiding problems 41 yo female with left UVJ stone. Pt c/o left low back pain 11/04 this morning. Denies n/v. Denies dysuria or hematuria. Problem List Medical Problems: (1) Kidney stone Status: Acute (2) Nausea & vomiting Status: Acute (3) Obstruction of right ureteropelvic junction (UPJ) due to stone Status: Acute (4) Renal colic Status: Acute (5) Ureterolithiasis Status: Acute Review of Systems Constitutional: No fever, No chills Respiratory: No shortness of breath Cardiac: No chest pain Abdomen: No pain, No nausea, No vomiting Musculoskeletal: + problem reported (left low back and flank 11/04) Female : No dysuria, No hematuria Heme: No abnormal bleeding/bruising Objective Vital Signs Date Time Temp Pulse Resp B/P (MAP) Pulse Ox O2 Delivery O2 Flow Rate FiO2 03/13/17 23:25 36.8 73 16 122/77 (92) 95 Room Air 03/13/17 23:25 Room Air 03/13/17 15:43 36.9 63 16 119/72 (88) 99 03/13/17 15:20 Room Air Physical Exam General Appearance: no apparent distress Eyes: normal inspection ENT: hearing grossly normal Neck: no JVD Respiratory/Chest: no respiratory distress, no accessory muscle use Cardiovascular: no JVD Extremities: normal inspection Neurologic/Psychiatric: alert, normal mood/affect, oriented x 3 Skin: normal color Laboratory Results Last 24 Hours Test 03/14/17 06:35 White Blood Count 5.37 K/uL Red Blood Count 4.00 M/uL Hemoglobin 12.1 g/dL Hematocrit 35.5 % Mean Corpuscular Volume 88.8 fL Mean Corpuscular Hemoglobin 30.3 pg Mean Corpuscular Hemoglobin Concent 34.1 g/dl Platelet Count 284 K/uL Mean Platelet Volume 9.3 fL Neutrophils (%) (Auto) 49.0 % Lymphocytes (%) (Auto) 33.5 % Monocytes (%) (Auto) 8.2 % Eosinophils (%) (Auto) 8.0 % Basophils (%) (Auto) 1.1 % Neutrophils # (Auto) 2.63 K/uL Lymphocytes # (Auto) 1.80 K/uL Monocytes # (Auto) 0.44 K/uL Eosinophils # (Auto) 0.43 K/uL Basophils # (Auto) 0.06 K/uL RDW Standard Deviation 41.5 fL RDW Coefficient of Variation 12.9 % Immature Granulocyte % (Auto) 0.2 % Immature Granulocyte # (Auto) 0.01 K/uL Assessment and Plan A/P: Left UVJ stone AFVSS. Pt continues to have moderate-severe pain. Stone not well visualized on KUB. Will plan for cystoscopy today with left ureteral stent placement and possible left ureteroscopy and laser lithotripsy. Risks and benefits of the procedure discussed with the pt. All questions answered. Pt agrees to the procedure at this time. Continued [facility] stay due to: inadequate oral pain control Discharge planning: home
[2017-03-14 07:44] LABS: BUN/CREATININE RATIO 17.7 (10-20); CALCIUM 8.2 mg/dl (8.5-10.1); CREATININE 0.84 mg/dl (0.60-1.20); POTASSIUM 3.8 mmol/L (3.5-5.1)
[2017-03-14 07:45] VITALS: O2SAT 95
[2017-03-14] MEDS: KETOROLAC TROMETHAMINE 30 MG/ML VIAL IV PRN (07:51)
[2017-03-14] MEDS: OXYBUTYNIN CHLORIDE 5 MG TAB PO SCH (08:23)
[2017-03-14] MEDS: TAMSULOSIN HCL 0.4 MG CAP PO SCH (08:23)
[2017-03-14] MEDS ORDERED: FENTANYL CITRATE INJ 50 MCG/1 ML 2 ML VIAL IV PRN (11:00)
[2017-03-14] MEDS ORDERED: EpHEDrine SULFATE INJ 50 MG/ML AMP IV PRN (11:00)
[2017-03-14] MEDS ORDERED: ATROPINE SULFATE 0.1 MG/ML 5ML SYR IV PRN (11:00)
[2017-03-14] MEDS ORDERED: ONDANSETRON INJ 2 MG/ML 2 ML VIAL IV PRN (11:00)
[2017-03-14] MEDS ORDERED: FENTANYL CITRATE INJ 50 MCG/1 ML 2 ML VIAL ONE ×2 (13:00→13:51)
[2017-03-14] MEDS ORDERED: MIDAZOLAM HCL 1 MG/ML 2ML VIAL ONE (13:00)
--- NOTE | 2017-03-14 13:14 | History & Physical Bridge Note ---
H&P Re-Evaluation Bridge Note: I have examined the patient, reviewed the History & Physical and in the interval since the performance of the History & Physical I have noted the following changes of clinical significance: No changes noted
[2017-03-14] MEDS ORDERED: CONRAY 30% 150ML BOTTLE ONE (13:41)
[2017-03-14] MEDS ORDERED: DEXAMETHASONE SOD INJ 4 MG/ML VIAL ONE (13:58)
[2017-03-14] MEDS ORDERED: PROPOFOL IV EMULSION 10 MG/ML 20 ML VIAL IV ONE (13:58)
[2017-03-14] MEDS ORDERED: LIDOCAINE HCL 2% 2 ML VIAL (20MG/ML) ONE (13:58)
[2017-03-14] MEDS ORDERED: ONDANSETRON INJ 2 MG/ML 2 ML VIAL ONE (13:58)
[2017-03-14] MEDS ORDERED: KETOROLAC TROMETHAMINE 30 MG/ML VIAL ONE (14:07)
--- NOTE | 2017-03-14 14:24 | DIAGNOSTIC IMAGING REPORT ---
RETROGRADE INCLUDES KUB CLINICAL HISTORY: LT CYSTO/STENT laser lithotripsy COMPARISON STUDY: CT scan dated 03/07/2017 FINDINGS: 3 intraoperative fluoroscopic spot images are provided for interpretation. 31 seconds of fluoroscopic time was utilized. The 3 images demonstrate mild fullness of the left renal collecting system. No collecting system filling defects are visualized. A guidewire was placed into an upper pole calyx. The final image demonstrates the proximal portion of a left-sided nephroureteral stent. The pigtail is not fully formed. IMPRESSION: Spot radiographs obtained during a left retrograde study, and stent placement.. Electronically signed by: Jorge Perez M.D. 03/14/2017 2:23 PM Dictated Date/Time: 03/14/2017 2:22 PM
--- NOTE | 2017-03-14 14:42 | Anesthesiology Progress Note ---
Anesthesia Post Op Note Date & Time Mar 14, 2017 at 14:42 Vital Signs Pain Intensity: 8.0 Vital Signs Past 12 Hours Date Time Temp Pulse Resp B/P (MAP) Pulse Ox O2 Delivery O2 Flow Rate FiO2 03/14/17 14:22 37.0 65 16 117/72 99 Oxymask 10 03/14/17 07:45 95 Room Air Notes Mental Status: alert / awake / arousable, participated in evaluation Pt Amnestic to Procedure: Yes Nausea / Vomiting: adequately controlled Pain: adequately controlled, improving with treatment Airway Patency, RR, SpO2: stable & adequate BP & HR: stable & adequate Hydration State: stable & adequate Anesthetic Complications: no major complications apparent
[2017-03-14] MEDS ORDERED: ACET-1047 PO ×2 (15:12)
[2017-03-14 15:15] VITALS: BP 134/81; PULSE 69; TEMP 37; O2SAT 99
--- NOTE | 2017-03-14 15:19 | Discharge Instructions ---
Discharge Instructions Date of Service Mar 14, 2017. Admission Reason for Admission: Nephrolithiasis, Pyelonephritis Discharge Discharge Diagnosis / Problem: Kidney Stone Discharge Goals Goal(s): Decrease discomfort, Therapeutic intervention Activity Recommendations Activity Limitations: per Instructions/Follow-up section . Instructions / Follow-Up Instructions / Follow-Up You came into the hospital due to abdominal pain A 7mm stone was found in your L ureter You went into surgery on the and had a laser lithotripsy of the stone with subsequent extraction of the stone and then you had a stone placed Urology will want you to follow up with them in 1-2 weeks as an outpatient Continue to drink plenty of fluids, do not drive home after discharge, you can take tylenol or ibuprofen over the counter for pain relief. If you experience any worsening abdominal pain, nausea, vomiting, fever >100.4 or burning with urination then please come back to the emergency department Current Hospital Diet Patient's current hospital diet: Regular Diet Discharge Diet Recommended Diet: Regular Diet Procedures Procedures Performed: Cystoscopy, Left Ureteroscopy, Laser Lithotripsy, Basket Stone Extraction, Left Ureteral Stent Placement Pending Studies Studies pending at discharge: no Medical Emergencies . Who to Call and When: Medical Emergencies: If at any time you feel your situation is an emergency, please call 911 immediately. . Non-Emergent Contact Non-Emergency issues call your: Primary Care Provider, Urologist . . "Provider Documentation" section prepared by Chapo Chan. . VTE Core Measure Inpt VTE Proph given/why not?: Unfractionated heparin SQ
[2017-03-14] MEDS ORDERED: IBUP-1450 PO ×2 (15:20)
--- NOTE | 2017-03-14 15:29 | Discharge Summary ---
Discharge Summary Date of Service Mar 14, 2017. Discharge Summary Admission Date: Mar 13, 2017 at 01:47 Discharge Date: Mar 14, 2017 Discharge Disposition: Home Principal Diagnosis: Left ureteral stone Immunizations: Have You Had Influenza Vaccine: No History of Tetanus Vaccine?: Yes Tetanus Immunization Date: May 31, 1998 History of Pneumococcal: No History of Hepatitis B Vaccine: No Procedures: Cystoscopy, Left ureteroscopy, laser lithotripsy, basket stone extraction and L ureteral stent Medication Reconciliation New Medications: Ibuprofen (Motrin) 600 Mg Tab 600 MG PO Q6H PRN for Pain for 10 Days, #40 TAB TAKE WITH FOOD Acetaminophen (Mapap) 325 Mg Tab 650 MG PO Q4H PRN for Pain or Fever for 10 Days, #80 TAB Continued Medications: Albuterol Hfa (Ventolin Hfa) 200 Puffs/60799 Mcg Aers 2 PUFFS INH Q6H PRN for SOB/Wheezing Amphetamine-Dextroamphetamine 30MG (Adderall Xr 30MG) 1 Cap Cap 30 MG PO QAM, CAP Amphetamine-Dextroamphetamine 30MG (Adderall 30MG) 1 Tab Tab 30 MG PO QAFTERNOON, TAB Medroxyprogesterone Acetate (Depo-Provera) 400 Mg/Ml Inj 400 MG INJ Q3MO Ondasetron Odt (Zofran Odt) 4 Mg Tab 4 MG SL Q6H for Nausea, #6 TAB Tamsulosin Hcl (Flomax) 0.4 Mg Cap 0.4 MG PO DAILY, CAP Discontinued Medications: Naproxen (Naprosyn) 500 Mg Tab 500 MG PO BID, TAB Oxycodone Ir (Roxicodone Ir) 5 Mg Tab 1-2 TAB PO Q4H PRN for Pain, #15 TAB For Initial Treatment Oxycodone/Acetaminophen 5MG/325MG (Percocet 5MG/325MG) Tab 1 TABLET PO Q6H PRN for Pain, TAB PAIN Discharge Exam Patient was seen post op She was in minimal distress She denied any nausea or vomiting, she said her abdominal pain was minimal She said she has someone to drive her home post op Patient was encourage to drink plenty of fluids post op She has ibuprofen and tylenol which she says she will use for pain Review of Systems: Constitutional: No fever, No chills, No sweats Respiratory: No cough, No sputum, No shortness of breath Cardiovascular: No chest pain, No edema, No palpitations Abdomen: No pain, No nausea, No vomiting Genitourinary - Female: No dysuria, No urinary frequency, No urinary urgency , No urinary incontinence, No urinary retention, No hematuria Physical Exam: General Appearance: WD/WN, no apparent distress ENT: hearing grossly normal, pharynx normal Neck: no JVD, no carotid bruits Respiratory/Chest: lungs clear, no respiratory distress, no accessory muscle use Cardiovascular: regular rate, rhythm, no JVD, no murmur Abdomen / GI: normal bowel sounds, soft, + tenderness (mild llq tenderness, no rebound or guarding) Extremities: normal inspection, no calf tenderness Neurologic/Psychiatric: normal mood/affect, oriented x 3 Hospital Course 41F p/w intractable Left Flank pain and colicky abdominal pain x 2 weeks. Patient was recently diagnosed with nephrolithiasis and was arranged to have an outpatient lithotripsy in 2 weeks. Patient failed outpatient treatment and was admitted for intervention. She was found to have a 7mm left vesicoureteral stone. This was removed on 03/14/2017 and patient had a stent placed and was discharged later in the day 7mm Left Kidney Stone at the Uterovesicular junction - stone removed and stent was placed - Tamsulosin 0.4mg cont'd - patient encourage to drink plenty of fluids post op - can take tylenol and ibuprofen post op for pain control - follow up with urology as outpatient in 1-2 weeks ADHD - Adderall held while on inpatient DVT Proph: Hep SQ BID held until after intervention. FULL CODE Resident Physician Supervision Note: I interviewed and examined the patient. Discussed with Dr. Chapo Chan and agree with findings and plan as documented in the note. Any exceptions or clarifications are listed here: None Patient presented with left UVJ stone, 7 mm, taken to the cystoscopy suite and stent placed she is doing well postprocedure her was at the bedside she is explained that she may still some pain overnight she states she is a few oxycodone left at home she'll be discharged with ibuprofen and Tylenol Vital signs are stable Patient was eating dinner her abdomen was soft and nontender Left UVJ stone status post cystoscopy and stent follow-up with urology as an outpatient Documented By: Jim Vo Total Time Spent: Less than 30 minutes This includes examination of the patient, discharge planning, medication reconciliation, and communication with other providers. Discharge Instructions Please refer to the electronic Patient Visit Report (Discharge Instructions) for additional information. Additional Copies To Yuan Christy M.D.
[2017-03-14 15:45] VITALS: BP 147/87; PULSE 68; TEMP 36.8; O2SAT 98
[2017-03-14 16:15] VITALS: BP 125/75; PULSE 86; TEMP 36.8; O2SAT 98
[2017-03-14 16:42] VITALS: BP 147/87; PULSE 68; TEMP 36.8; O2SAT 98
--- NOTE | 2017-03-15 12:13 | [facility] Operative Report ---
Operative Report Operative Date Mar 15, 2017. Pre-Operative Diagnosis Left Distal Ureteral Stones Post-Operative Diagnosis Left Distal Ureteral Stones Procedure(s) Performed Cystoscopy, Left Ureteroscopy, Laser Lithotripsy, Basket Stone Extraction, Left Ureteral Stent Placement Surgeon Dr. Jean Gerontological Nurse Practitioner Surgeon(s) none Estimated Blood Loss 0 cc Findings Cystoscopy showed normal urethra. Bladder showed no mucosal abnormalities. Ureteroscopy showed a stone in the distal left ureter Specimens none per surgeon Drains Six Japanese by 26 centimeter left ureteral stent Anesthesia General Complication(s) None Disposition Recovery Room / PACU Indications 41-year-old white female with a distal left stone causing colic. Patient being brought in for ureteroscopy laser lithotripsy and stent Description of Procedure After the induction of an adequate general anesthetic an appropriate time-out patient was placed in the dorsal lithotomy position. Lower abdomen and genitalia were prepped with Hibiclens and draped in a sterile fashion. Next routine cystoscopic exam was performed with the above-noted findings with 30 and 70 degree lenses. Then under fluoroscopic guidance a 0.038 guidewire was passed up the left ureter to position in the renal pelvis. Ureteroscopy was then done in the distal left ureter stone was identified. Using a 200 micron laser fiber and holmium laser the stone was fragmented into multiple small pieces several of the larger fragments were extracted with a basket after making sure all the stone was recall on ureteral scope was removed guidewire was Re threaded through the cystoscope and a 6 Japanese by 26 centimeter stent was passed up the left ureter under fluoroscopic guidance to position the renal pelvis. Guidewire was removed. There was a good curl at the bladder level. All needle sponge and instrument counts were correct at the end of the case. Patient tolerated the procedure well and was taken recovery room in stable condition I attest to the content of the Intraoperative Record and any orders documented therein. Any exceptions are noted below.
== END 2017-03-14 17:40 | disposition home or self-care (01) | DRG 670 ==
LOC: C.EDB 23:10 → C.MSN 03-13 01:47 → ENRESERV 03-13 02:03
PROVIDERS: ADMIT Family Medicine; ATTEND Internal Medicine
PROC: 0TC78ZZ Extirpation of Matter from Left Ureter, Via Natural or Artificial Opening Endoscopic (ICD-10-PCS; principal; 2017-03-14 07:00)
PROC: 0T778DZ Dilation of Left Ureter with Intraluminal Device, Via Natural or Artificial Opening Endoscopic (ICD-10-PCS; principal; 2017-03-14 07:00)
DX: N13.6 Pyonephrosis (principal); F32.9 Major depressive disorder, single episode, unspecified; F14.21 Cocaine dependence, in remission; F17.210 Nicotine dependence, cigarettes, uncomplicated; F90.9 Attention-deficit hyperactivity disorder, unspecified type

== ENCOUNTER 2017-03-16 10:48 | Emergency (ER) | payer OTHER ==
[~2017-03-16] VITALS: Ht 182.9 cm; Wt 112.4 kg
[~2017-03-16 10:48] MED LIST changes: +ACET-1047 PO; +IBUP-1450 PO; -NAPR-1169 PO; -OXYC-57 PO; -OXYC1TAB3 PO
[2017-03-16 11:02] VITALS: Ht 182.9 cm; Wt 112.4 kg
[2017-03-16] MEDS ORDERED: MoRPHine SULFATE 4 MG/ML 1 ML CARP\\VIAL IV STA (11:28)
[2017-03-16] MEDS ORDERED: ONDANSETRON INJ 2 MG/ML 2 ML VIAL IV STA (11:28)
[2017-03-16 12:19] LABS: BASO % 0.4 %; BASO ABS # 0.06 K/uL (0-0.2); COMPLETE YES; HEMATOCRIT 43.4 % (37-47); IG% 0.3 %; MEAN CELL VOLUME 89.7 fL (80-100); MEAN CORPUSCULAR HEMOGLOBIN 29.8 pg (25-34); MEAN CORPUSCULAR HGB CONC 33.2 g/dl (32-36); MEAN PLATELET VOLUME 10.2 fL (7.4-10.4); MONO % 7.8 %; NEUT % 69.5 %; PLATELET COUNT 394 K/uL (130-400); RED BLOOD COUNT 4.84 M/uL (4.2-5.4)
[2017-03-16 12:22] LABS: REVIEW REQ? NO
[2017-03-16 12:23] LABS: MANUAL MICROSCOPIC REQUIRED? YES; SULFASALICYLIC ACID POS (NEG); URINE APPEARANCE CLOUDY (CLEAR); URINE COLOR BROWN; URINE SPECIFIC GRAVITY 1.028 (1.000-1.030)
[2017-03-16 12:32] LABS: URINE BACTERIA NEG (NEG); URINE RBC >30 /hpf (0-4)
[2017-03-16 12:33] LABS: ZZUR CULT IF INDIC CLEAN CATCH YES
--- NOTE | 2017-03-16 12:36 | DIAGNOSTIC IMAGING REPORT ---
KUB CLINICAL HISTORY: Left ureteral stent. Kidney stones. Cramping. COMPARISON STUDY: CT of the abdomen and pelvis March 07, 2017, KUB the and renal ultrasound March 13, 2017. FINDINGS: Left ureteral stent is in place. No ureteral calculi are identified by radiography. The 4 mm distal left ureteral calculus shown on CT of March 07, 2017 is not visualized on this exam. The small bilateral renal calculi shown on that exam are not visualized, likely due to their size. IMPRESSION: Left ureteral stent in place. No urinary calculi identified by radiography. Electronically signed by: Kike Aguilera M.D. 03/16/2017 12:35 PM Dictated Date/Time: 03/16/2017 12:31 PM
[2017-03-16 12:38] LABS: BUN/CREATININE RATIO 20.9 (10-20); CALCIUM 8.7 mg/dl (8.5-10.1); CREATININE 0.98 mg/dl (0.60-1.20); POTASSIUM 3.7 mmol/L (3.5-5.1)
[2017-03-16] MEDS ORDERED: MoRPHine SULFATE 10 MG/ML CARP/VIAL IV STA (13:08)
--- NOTE | 2017-03-16 13:18 | DIAGNOSTIC IMAGING REPORT ---
RENAL ULTRASOUND CLINICAL HISTORY: Left flank pain. COMPARISON STUDY: CT of the abdomen and pelvis March 07, 2015 and renal ultrasound March 13, 2017. TECHNIQUE: Sonography of the kidneys and the urinary bladder was performed. FINDINGS: The right kidney measures 11.4 cm in maximal dimension and the left measures 11.6 cm. A left ureteral stent is in place. Mild to moderate left hydronephrosis is similar to exam of March 13, 2017. The distal left ureteral calculus shown on prior exam is not evident on this study. IMPRESSION: 1. No change in mild to moderate left hydronephrosis. 2. Left ureteral stent in place. 3. No ureteral calculus identified although these may be occult by sonography. Electronically signed by: Kike Aguilera M.D. 03/16/2017 1:17 PM Dictated Date/Time: 03/16/2017 12:58 PM
[2017-03-16 13:22] LABS: PREG INTERNAL NEGATIVE QC NEG CLEAR BACKGROUND; PREG INTERNAL POSITIVE QC POS CONTROL LINE
[2017-03-16] MEDS ORDERED: SULF800T23 PO (13:47)
[2017-03-16] MEDS ORDERED: TAMS0.4C38 PO (13:47)
[2017-03-16] MEDS ORDERED: OXYC1TAB3 PO (13:47)
[2017-03-16] MEDS ORDERED: DTR/5 PO (13:47)
[2017-03-16 14:14] VITALS: BP 107/65; PULSE 84; TEMP 36.6; O2SAT 100
--- NOTE | 2017-03-16 16:55 | EMERGENCY ROOM VISIT NOTE ---
History Report prepared by [place]: Jim De Leon Under the Supervision of: Dr. Romero Garibay D.O. First contact with patient: 11:08 Chief Complaint: OTHER COMPLAINT Stated Complaint: L URETAL STINT PLACED ON 03/14, SEVERE CRAMPING History of Present Illness The patient is a 41 year old female who presents to the Emergency Room with complaints of severe, constant abdominal cramping that started 2 days ago. Patient describes the pain as "feeling like her body wants to push out". Patient had a ureteral stent placed two days ago following lithotripsy. She admits this was her first stent. She has recently past a 7mm stone. Patient has associated symptoms of hematuria, nausea, intermittent back pain, and painful urination. Patient adds that her urine color is "orangeish" and like a "merlot" color. She notes that she took Pyridium today. Patient has a pertinent past medical history of an appendectomy, cholecystectomy, and complete colectomy. Patient reports taking ibuprofen and Tylenol for pain. She admits to taking a Roxicet, and states that Pyridium did not help her symptoms. Source of History: patient Onset: 2 days ago Position: abdomen (LLQ) Symptom Intensity: severe Timing: constant Associated Symptoms: + back pain, + urinary symptoms (Painful urination) Note: Patient adds she has hematuria. Review of Systems See HPI for pertinent positives & negatives. A total of 10 systems reviewed and were otherwise negative. Past Medical & Surgical Medical Problems: (1) Depression (2) History of cocaine dependence (3) Kidney stones (4) Nephrolithiasis (5) Pyelonephritis Family History No pertinent family history Social History Smoking Status: Current Every Day Smoker Alcohol Use: none Drug Use: none Marital Status: single Occupation Status: employed Current/Historical Medications Scheduled Amphetamine-Dextroamphetamine 30MG (Adderall Xr 30MG), 30 MG PO QAM Amphetamine-Dextroamphetamine 30MG (Adderall 30MG), 30 MG PO QAFTERNOON Medroxyprogesterone Acetate (Depo-Provera), 400 MG INJ Q3MO Ondasetron Odt (Zofran Odt), 4 MG SL Q6H Oxybutynin Chloride (Ditropan), 1 TAB PO BID Sulfa/Trimethoprim (Bactrim Ds 800MG/160MG), 1 TAB PO BID Tamsulosin Hcl (Flomax), 0.4 MG PO DAILY Tamsulosin Hcl (Flomax), 0.4 MG PO DAILY Scheduled PRN Acetaminophen (Mapap), 650 MG PO Q4H PRN for Pain or Fever Albuterol Hfa (Ventolin Hfa), 2 PUFFS INH Q6H PRN for SOB/Wheezing Ibuprofen (Motrin), 600 MG PO Q6H PRN for Pain Oxycodone Immediate Rel Tab (Roxicodone Ir), 5 MG PO Q4H PRN for Severe Pain Allergies Coded Allergies: Tramadol (Verified Adverse Reaction, Intermediate, N/V, 03/07/17) Physical Exam Vital Signs Date Time Temp Pulse Resp B/P (MAP) Pulse Ox O2 Delivery O2 Flow Rate FiO2 03/16/17 14:14 36.6 84 18 107/65 100 03/16/17 14:13 84 18 107/65 100 Room Air 03/16/17 12:57 85 18 107/63 100 Room Air 03/16/17 11:02 36.6 71 18 135/90 98 Room Air Physical Exam GENERAL: Sitting up in bed, alert, uncomfortable, holding LLQ, well nourished, no distress, non-toxic EYE EXAM: normal conjunctiva. OROPHARYNX: no exudate, no erythema, lips, buccal mucosa, and tongue normal and mucous membranes are moist NECK: supple, no nuchal rigidity, no adenopathy, non-tender LUNGS: Clear to auscultation. Normal chest wall mechanics HEART: no murmurs, S1 normal and S2 normal ABDOMEN: abdomen soft, minimal tenderness in left flank, normo-active bowel sounds, no masses, no rebound or guarding. BACK: Back is symmetrical on inspection and there is no deformity, no midline tenderness, no CVA tenderness. SKIN: no rashes and no bruising UPPER EXTREMITIES: upper extremities are grossly normal. LOWER EXTREMITIES: No pitting edema. NEURO EXAM: Normal sensorium, cranial nerves II-XII grossly intact, normal speech, no gross weakness of arms, no gross weakness of legs. Medical Decision & Procedures ER Provider Diagnostic Interpretation: Radiology results as stated below per my review and the radiologist's interpretation: KUB CLINICAL HISTORY: Left ureteral stent. Kidney stones. Cramping. COMPARISON STUDY: CT of the abdomen and pelvis March 07, 2017, KUB the and renal ultrasound March 13, 2017. FINDINGS: Left ureteral stent is in place. No ureteral calculi are identified by radiography. The 4 mm distal left ureteral calculus shown on CT of March 07, 2017 is not visualized on this exam. The small bilateral renal calculi shown on that exam are not visualized, likely due to their size. IMPRESSION: Left ureteral stent in place. No urinary calculi identified by radiography. Electronically signed by: Kike Aguilera M.D. 03/16/2017 12:35 PM RENAL ULTRASOUND CLINICAL HISTORY: Left flank pain. COMPARISON STUDY: CT of the abdomen and pelvis March 07, 2015 and renal ultrasound March 13, 2017. TECHNIQUE: Sonography of the kidneys and the urinary bladder was performed. FINDINGS: The right kidney measures 11.4 cm in maximal dimension and the left measures 11.6 cm. A left ureteral stent is in place. Mild to moderate left hydronephrosis is similar to exam of March 13, 2017. The distal left ureteral calculus shown on prior exam is not evident on this study. IMPRESSION: 1. No change in mild to moderate left hydronephrosis. 2. Left ureteral stent in place. 3. No ureteral calculus identified although these may be occult by sonography. Electronically signed by: Kike Aguilera M.D. 03/16/2017 1:17 PM Laboratory Results 03/16/17 11:10 Red Blood Count 4.84, Mean Corpuscular Volume 89.7, Mean Corpuscular Hemoglobin 29.8, Mean Corpuscular Hemoglobin Concent 33.2, Mean Platelet Volume 10.2, Neutrophils (%) (Auto) 69.5, Lymphocytes (%) (Auto) 20.0, Monocytes (%) (Auto) 7.8, Eosinophils (%) (Auto) 2.0, Basophils (%) (Auto) 0.4, Neutrophils # (Auto) 9.73, Lymphocytes # (Auto) 2.80, Monocytes # (Auto) 1.09, Eosinophils # (Auto) 0.28, Basophils # (Auto) 0.06 03/16/17 11:10 Test 03/16/17 11:07 03/16/17 11:10 Urine Color BROWN Urine Appearance CLOUDY (CLEAR) Urine pH (4.5-7.5) Urine Specific [place] 1.028 (1.000-1.030) Urine Protein POS (NEG) Urine Glucose (UA) (NEG) Urine Ketones (NEG) Urine Occult Blood (NEG) Urine Nitrite (NEG) Urine Bilirubin (NEG) Urine Urobilinogen (NEG) Urine Leukocyte Esterase (NEG) Urine RBC >30 /hpf (0-4) Urine WBC 5-10 /hpf (0-5) Urine Epithelial Cells 0-5 /lpf (0-5) Urine Bacteria NEG (NEG) White Blood Count 14.00 K/uL (4.8-10.8) Red Blood Count 4.84 M/uL (4.2-5.4) Hemoglobin 14.4 g/dL (12.0-16.0) Hematocrit 43.4 % (37-47) Mean Corpuscular Volume 89.7 fL (80-100) Mean Corpuscular Hemoglobin 29.8 pg (25-34) Mean Corpuscular Hemoglobin Concent 33.2 g/dl (32-36) Platelet Count 394 K/uL (130-400) Mean Platelet Volume 10.2 fL (7.4-10.4) Neutrophils (%) (Auto) 69.5 % Lymphocytes (%) (Auto) 20.0 % Monocytes (%) (Auto) 7.8 % Eosinophils (%) (Auto) 2.0 % Basophils (%) (Auto) 0.4 % Neutrophils # (Auto) 9.73 K/uL (1.4-6.5) Lymphocytes # (Auto) 2.80 K/uL (1.2-3.4) Monocytes # (Auto) 1.09 K/uL (0.11-0.59) Eosinophils # (Auto) 0.28 K/uL (0-0.5) Basophils # (Auto) 0.06 K/uL (0-0.2) RDW Standard Deviation 42.8 fL (36.4-46.3) RDW Coefficient of Variation 13.1 % (11.5-14.5) Immature Granulocyte % (Auto) 0.3 % Immature Granulocyte # (Auto) 0.04 K/uL (0.00-0.02) Anion Gap 6.0 mmol/L (3-11) Est Creatinine Clear Calc Drug Dose 107.0 ml/min Estimated GFR () 83.6 Estimated GFR (Non- 72.2 BUN/Creatinine Ratio 20.9 (10-20) Calcium Level 8.7 mg/dl (8.5-10.1) Total Bilirubin 0.7 mg/dl (0.2-1) Direct Bilirubin 0.1 mg/dl (0-0.2) Aspartate Amino Transf (AST/SGOT) 16 U/L (15-37) Alanine Aminotransferase (ALT/SGPT) 41 U/L (12-78) Alkaline Phosphatase 155 U/L (45-117) Total Protein 8.0 gm/dl (6.4-8.2) Albumin 4.4 gm/dl (3.4-5.0) Lipase 125 U/L (73-393) Human Chorionic Gonadotropin, Qual NEG (NEG) Laboratory results per my review. Medications Administered Medications (Trade) Dose Ordered Sig/Nicole Route Start Time Stop Time Status Last Admin Dose Admin Morphine Sulfate (MoRPHine SULFATE INJ) 4 mg NOW STAT IV 03/16/17 11:28 03/16/17 11:31 DC 03/16/17 11:48 4 MG Ondansetron HCl (Zofran Inj) 4 mg NOW STAT IV 03/16/17 11:28 03/16/17 11:31 DC 03/16/17 11:48 4 MG Morphine Sulfate (MoRPHine SULFATE INJ) 6 mg NOW STAT IV 03/16/17 13:08 03/16/17 13:10 DC 03/16/17 13:13 6 MG ED Course ED COURSE: Vital signs were reviewed and appeared normal The patients medical record was reviewed The above diagnostic studies were performed and reviewed. ED treatments and interventions as stated above. 1122: The patient was evaluated in room C12. A complete history and physical examination was performed. 1128: Zofran Inj 4mg IV, Morphine Sulfate Inj 4mg 1307: I reassessed the patient and she is resting comfortably. 1308: Morphine Sulfate Inj 6mg IV 1340: Upon reevaluation, the patient is resting comfortably.I discussed my findings with the patient and she understands and agrees with the treatment plan. Based on the patients age, coexisting illnesses, exam and lab findings the decision to treat as an outpatient was made. The patient remained stable while under my care. The patient appeared well at the time of discharge. Medical Decision Differential diagnoses includes but is not limited to gastritis, peptic ulcer disease, GERD, gallbladder disease, pancreatitis, small bowel obstruction, acute coronary syndrome, pericarditis, ischemic bowel, irritable bowel disease, irritable bowel syndrome, appendicitis, diverticulitis, malignancy, hernia, urinary tract infection, torsion, [/ectopic (if female)], perforation, trauma, infectious. Patient is a 41-year-old female who presents to ER for left lower abdominal pain in the suprapubic region. She notes that this has been faintly present stent was placed. She had lithotripsy and a stent for a 7 mm kidney stone on Tuesday. She notes today she has been urinating blood. She does have mild back pain but this is better than when she had a kidney stone. No fevers. Leukocytosis of 14,000. BMP all LFTs, bilirubin and lipase is unremarkable. Beta-hCG was negative. UA had a small amount of white cells. Stent is in place on KUB. Ultrasound still shows mild hydronephrosis. Urology/Melissa meadows reviewed findings with me over the telephone. Patient was given 2 doses of IV narcotics. She felt significant better. She is taking Flomax at home. Gave her an additional pressure. Her Flomax, OxyIR and oxybutynin. Patient will follow up with urology as an outpatient. I do favor her symptoms are likely secondary to the stent and hopefully will improve as they're generally worse or the first 48 hours. Discussed with Pt concerning signs and symptoms to watch out for. Pt was instructed to follow up with their PCP and discussed with the patient their option to return to the ED at anytime for persistent or worsening symptoms. The appropriate anticipatory guidance and out-patient management, including indications for return to the emergency department, were explained at length to the patient and understood. Medication Reconcilliation Current Medication List: was personally reviewed by me Blood Pressure Screening Patient's blood pressure: Normal blood pressure Blood pressure disposition: Did not require urgent referral Consults Time Called: 1334 Consulting Physician: Melissa GOODMAN - Urology Returned Call: [phone] I reviewed the patient's case with Dr. Melissa Meadows. She recommends discharging him home and following up with him as an outpatient for further management. Impression Primary Impression: Complication of urinary stent Scribe Attestation The scribe's documentation has been prepared under my direction and personally reviewed by me in its entirety. I confirm that the note above accurately reflects all work, treatment, procedures, and medical decision making performed by me. Departure Information Dispostion Home / Self-Care Prescriptions Oxycodone Immediate Rel Tab (ROXICODONE IR) 5 Mg Tab 5 MG PO Q4H Y for Severe Pain, #14 TAB Prov: Romero Garibay, DO 03/16/17 Oxybutynin Chloride (DITROPAN) 5 Mg Tab 1 TAB PO BID for 10 Days, #20 TAB 0 Refills Prov: Romero Garibay, DO 03/16/17 Sulfa/Trimethoprim (Bactrim Ds 800MG/160MG) Tab 1 TAB PO BID, #10 TAB Prov: Romero Garibay, DO 03/16/17 Tamsulosin Hcl (FLOMAX) 0.4 Mg Cap 0.4 MG PO DAILY, #7 CAP Prov: Romero Garibay, DO 03/16/17 Referrals Yuan Christy M.D. (PCP) Forms HOME CARE DOCUMENTATION FORM, IMPORTANT VISIT INFORMATION, WORK / SCHOOL INSTRUCTIONS Patient Instructions My [facility] Additional Instructions Please follow up with your primary care doctor or if you are a student, [facility] with in the next 24 hours. Any worsening of your symptoms, please return to the ED immediately. This includes any fevers greater than 100.4, worsening pain, chest pain, shortness breath, persistent nausea, vomiting, unable to eat or drink, or any other concerning signs or symptoms from your standpoint. You were given medications during this visit that will inhibit your ability to drive, operate machinery and work. Please do NOT drive, operate machinery or work for the next 12hrs. You were also given a prescription for a narcotic. While taking this medication you should also not drive, operate machinery and or work. Please follow up with urology within the next 24 hours. Please take antibiotics as prescribed. This is to be on suicide to make sure he did not develop an infection. Please continue your Flomax as previously prescribed. Problem Qualifiers Primary Impression: Complication of urinary stent Encounter type: initial encounter Qualified Codes: T83.9XXA - Unspecified complication of genitourinary prosthetic device, implant and graft, initial encounter
== END 2017-03-16 14:16 | disposition home or self-care (01) ==
LOC: C.EDB 10:50 → C.EDC 14:16
DX: T83.9XXA Unspecified complication of genitourinary prosthetic device, implant and graft, initial encounter (principal); Y83.1 Surgical operation with implant of artificial internal device as the cause of abnormal reaction of the patient, or of later complication, without mention of misadventure at the time of the procedure; F17.200 Nicotine dependence, unspecified, uncomplicated; Z87.442 Personal history of urinary calculi; Z90.49 Acquired absence of other specified parts of digestive tract; Z90.89 Acquired absence of other organs; Z98.890 Other specified postprocedural states

== ENCOUNTER → 2017-03-23 | Outpatient (CLI) | payer OTHER ==
[~2017-03-23] MED LIST changes: +DTR/5 PO; +HYDR12.55 PO; +HYDR25TA5 PO; +ONDA4TAB46 PO; +OXYC-737 PO; +POTA-639 PO; +SULF800T23 PO
--- NOTE | 2017-03-23 09:13 | DIAGNOSTIC IMAGING REPORT ---
KUB CLINICAL HISTORY: 41 years-old Female presenting with N20.0 [id number]. TECHNIQUE: Single supine view of the abdomen was obtained. COMPARISON: 03/16/[address] from 03/07/2017. FINDINGS: Mild diffuse gaseous distention of small and large bowel. An anastomotic suture line may be present in the left abdomen. Cholecystectomy clips noted. Additional surgical clips projects over the medial and lateral right mid abdomen. Allowing for bowel gas and stool, previously noted punctate bilateral nephrolithiasis evident on prior CT is not radiographically apparent. The left ureteral stent remains in place. No ureteral calculi are evident. Stable distribution of right pelvic phleboliths.. Osseous structures normal. IMPRESSION: 1. Left ureteral stent. No radiographically evident renal or ureteral calculi. Bilateral punctate nephrolithiasis by recent CT. Electronically signed by: Bobo Mancilla M.D. 03/23/2017 9:12 AM Dictated Date/Time: 03/23/2017 9:10 AM
== END | disposition home or self-care (01) ==
LOC: C.RAD 08:26
PROVIDERS: ATTEND Urology
DX: N20.0 Calculus of kidney (principal); Z96.0 Presence of urogenital implants

== ENCOUNTER → 2017-05-02 | Outpatient (CLI) | payer OTHER ==
[~2017-05-02] MED LIST changes: -HYDR12.55 PO; -HYDR25TA5 PO; -IBUP-1450 PO; -ONDA4TAB46 PO; -OXYC-737 PO; +OXYC1TAB3 PO; -POTA-639 PO
--- NOTE | 2017-05-02 11:36 | DIAGNOSTIC IMAGING REPORT ---
(RENAL)RETROPERITON COMP HISTORY: Hydronephrosis N20.1 Ureteric stoneno latex [id number] COMPARISON: 03/16/2017 FINDINGS: Right kidney: Maximum dimension 10.6 cm. No evidence for hydronephrosis. Normal corticomedullary differentiation and cortical thickness. Left kidney: Maximum dimension 10.9 cm. No evidence for hydronephrosis. Normal corticomedullary differentiation and cortical thickness. Bladder: No bladder wall thickening. The bilateral ureteral jets were identified. IMPRESSION: Normal renal ultrasound. No evidence for hydronephrosis. The above report was generated using voice recognition software. It may contain grammatical, syntax or spelling errors. Electronically signed by: Agus Stephenson M.D. 05/02/2017 11:34 AM Dictated Date/Time: 05/02/2017 11:29 AM
== END | disposition home or self-care (01) ==
LOC: C.ULTR 10:36
PROVIDERS: ATTEND Urology
DX: N20.1 Calculus of ureter (principal)

== ENCOUNTER → 2017-05-11 | Outpatient (CLI) | payer OTHER ==
--- NOTE | 2017-05-11 10:14 | DIAGNOSTIC IMAGING REPORT ---
KUB HISTORY: Nephrolithiasis. COMPARISON: KUB 03/23/2017. FINDINGS: The bowel gas pattern is unremarkable. There are no dilated loops of small bowel to suggest an obstruction. The left ureteral stent has been removed. Prior cholecystectomy. Calcifications within the right deep pelvis remain stable and likely represent phleboliths. No ureteral calculi identified. Suture material within the abdomen is again noted. No pneumoperitoneum or pneumatosis. 2 mm stone within the upper pole the right kidney, unchanged. No left renal calculi. IMPRESSION: 1. Right-sided nephrolithiasis, unchanged. 2. No ureteral calculi. Electronically signed by: Conor Bear M.D. 05/11/2017 10:12 AM Dictated Date/Time: 05/11/2017 10:09 AM
== END | disposition home or self-care (01) ==
LOC: C.RAD 09:42
PROVIDERS: ATTEND Urology
DX: N20.0 Calculus of kidney (principal)

== ENCOUNTER → 2017-06-17 | Outpatient (CLI) | payer OTHER ==
[2017-06-17 13:59] LABS: ALBUMIN 3.9 gm/dl (3.4-5.0); ALT/SGPT 30 U/L (12-78); BLOOD UREA NITROGEN 18 mg/dl (7-18); CALCIUM 8.8 mg/dl (8.5-10.1); CARBON DIOXIDE 25 mmol/L (21-32); CREATININE 0.97 mg/dl (0.60-1.20); GLUCOSE 81 mg/dl (70-99); POTASSIUM 3.8 mmol/L (3.5-5.1); SODIUM 138 mmol/L (136-145); URIC ACID 5.3 mg/dl (2.6-7.2)
[2017-06-17 14:01] LABS: ALKALINE PHOSPHATASE 95 U/L (45-117); AST/SGOT 19 U/L (15-37); PHOSPHORUS 2.8 mg/dl (2.5-4.9); TOTAL PROTEIN 7.4 gm/dl (6.4-8.2)
== END | disposition home or self-care (01) ==
LOC: C.LAB 12:32
PROVIDERS: ATTEND Urology
DX: N20.0 Calculus of kidney (principal)

== ENCOUNTER 2017-07-19 12:33 | Emergency (ER) | payer OTHER ==
[~2017-07-19] VITALS: Ht 182.9 cm; Wt 109.0 kg
[2017-07-19 12:53] VITALS: Ht 182.9 cm; Wt 109.0 kg
[2017-07-19] MEDS ORDERED: KETOROLAC TROMETHAMINE 30 MG/ML VIAL IV STA (13:25)
[2017-07-19] MEDS ORDERED: ONDANSETRON INJ 2 MG/ML 2 ML VIAL IV STA (13:25)
[2017-07-19] MEDS ORDERED: SODIUM CHLORIDE 0.9% 1000ML 1,000 ML IV STA (13:25)
[2017-07-19 13:56] LABS: BASO % 0.8 %; BASO ABS # 0.06 K/uL (0-0.2); EOS % 4.2 %; EOS ABS # 0.32 K/uL (0-0.5); HEMATOCRIT 43.6 % (37-47); HEMOGLOBIN 15.3 g/dL (12.0-16.0); IG# 0.01 K/uL (0.00-0.02); LYMPH % 29.1 %; LYMPH ABS # 2.21 K/uL (1.2-3.4); MEAN CORPUSCULAR HEMOGLOBIN 30.5 pg (25-34); MEAN CORPUSCULAR HGB CONC 35.1 g/dl (32-36); MEAN PLATELET VOLUME 9.8 fL (7.4-10.4); MONO % 7.2 %; MONO ABS # 0.55 K/uL (0.11-0.59); NEUT % 58.6 %; NEUT ABS # 4.44 K/uL (1.4-6.5); PLATELET COUNT 282 K/uL (130-400); RED CELL DISTRIBUTION WIDTH CV 13.4 % (11.5-14.5); RED CELL DISTRIBUTION WIDTH SD 42.3 fL (36.4-46.3); WHITE BLOOD COUNT 7.59 K/uL (4.8-10.8)
--- NOTE | 2017-07-19 14:07 | DIAGNOSTIC IMAGING REPORT ---
KUB CLINICAL HISTORY: right flank pain pain COMPARISON STUDY: 05/11/2017 FINDINGS: Nonobstructive bowel pattern. Clips scattered throughout the mid and upper abdomen. No significant nephrocalcinosis within limitations of overlying bowel content. IMPRESSION: Postoperative change is noted. No acute process. The above report was generated using voice recognition software. It may contain grammatical, syntax or spelling errors. Electronically signed by: Agus Stephenson M.D. 07/19/2017 2:05 PM Dictated Date/Time: 07/19/2017 2:05 PM
[2017-07-19 14:10] LABS: ALBUMIN 4.3 gm/dl (3.4-5.0); CALCIUM 9.5 mg/dl (8.5-10.1); CREATININE 1.01 mg/dl (0.60-1.20); POTASSIUM 3.6 mmol/L (3.5-5.1)
[2017-07-19 14:13] LABS: TOTAL PROTEIN 8.1 gm/dl (6.4-8.2)
--- NOTE | 2017-07-19 14:18 | EMERGENCY ROOM VISIT NOTE ---
History First contact with patient: 13:00 Chief Complaint: FLANK PAIN Stated Complaint: NAUSEA, R FLANK PAIN, POSS KIDNEY STONE History of Present Illness The patient is a 41 year old female who presents to the Emergency Room with complaints of "it hurts". The patient reports a history of kidney stones, and states she is experiencing right flank pain which began this morning. She describes it as a jabbing, intermittent pain which sometimes improves and worsens based on position. The patient states the pain is associated with nausea. She denies any hematuria, dysuria, urinary frequency, urinary hesitancy , diarrhea, constipation, or abdominal pain. The patient did take 800 mg of Advil prior to arrival without improvement in her symptoms. Her last menstrual period was many months ago. Her last Depo shot was a few weeks ago. The patient states she is occasionally sexually active. She denies any recent fevers or illness. She is scheduled to see her urologist later this week, and was recently seen by her clerical transcriber and started on hydrochlorothiazide. The patient states in February she did have lithotripsy performed to remove a stone in her ureter. Review of Systems A complete 10 point review of systems was reviewed with the patient with pertinent positives and negatives as per history of present illness. All else were negative. Past Medical/Surgical History Medical Problems: (1) Depression (2) History of cocaine dependence (3) Kidney stones (4) Nephrolithiasis (5) Pyelonephritis Family History No pertinent family history Social History Smoking Status: Current Some Day Smoker Alcohol Use: none Drug Use: none Marital Status: single Occupation Status: employed Current/Historical Medications Scheduled Amphetamine-Dextroamphetamine 30MG (Adderall Xr 30MG), 30 MG PO QAM Amphetamine-Dextroamphetamine 30MG (Adderall 30MG), 30 MG PO QAFTERNOON Hydrochlorothiazide (Hydrochlorothiazide), 1 TAB PO DAILY Medroxyprogesterone Acetate (Depo-Provera), 400 MG INJ Q3MO Ondasetron Odt (Zofran Odt), 4 MG SL Q6H Ondasetron Odt (Zofran Odt), 4 MG SL Q6H Scheduled PRN Acetaminophen (Mapap), 650 MG PO Q4H PRN for Pain or Fever Albuterol Hfa (Ventolin Hfa), 2 PUFFS INH Q6H PRN for SOB/Wheezing Physical Exam Vital Signs Date Time Temp Pulse Resp B/P (MAP) Pulse Ox O2 Delivery O2 Flow Rate FiO2 07/19/17 16:16 75 16 124/76 98 07/19/17 14:22 76 20 116/97 99 Room Air 07/19/17 12:53 36.8 89 20 142/89 99 Room Air Physical Exam VITALS: Vitals are noted on the nurse's note and reviewed by myself. Vital signs stable. GENERAL: This is a 41-year-old white female, in significant pain, nondiaphoretic , well-developed well-nourished. The patient is unable to get comfortable and is crying. SKIN: The skin was without rashes, erythema, edema, or bruising. There is no tenting of the skin. Capillary reflex less than 2 seconds. HEAD: Normocephalic atraumatic. EARS: External auditory canals clear, tympanic membranes pearly leyva without erythema or effusion bilaterally. EYES: Pupils equal round and reactive to light and accommodation. Conjunctivae without injection, sclerae without icterus. Extraocular movements intact. NOSE: Patent, turbinates without inflammation or discharge. No sinus tenderness. MOUTH: Mucous membranes moist. Tonsils are not enlarged. Pharynx without erythema or exudate. Uvula midline. Airway patent. Tongue does not deviate. NECK: Supple without nuchal rigidity. No lymphadenopathy. No thyromegaly. Cervical spine is nontender. No JVD. HEART: Regular rate and rhythm without murmurs gallops or rubs. LUNGS: Clear to auscultation bilaterally without wheezes, rales or rhonchi. No dullness to percussion. No retractions or accessory muscle use. ABDOMEN: Positive bowel sounds x 4. Normal tympanic percussion. Soft, nontender, without masses or organomegaly. Alex sign negative. No guarding or rebound tenderness. Positive CVA tenderness on the right. MUSCULOSKELETAL: No muscle atrophy, erythema, or edema noted. Full range of motion without joint tenderness in all extremities. No tenderness to palpation. Normal gait. Strength 5/5 throughout. NEURO: Patient was alert and oriented to person place and time. Normal sensation to light and sharp touch. Deep tendon reflexes 2+ throughout. No focal neurological deficits. Medical Decision & Procedures ER Provider Diagnostic Interpretation: KUB CLINICAL HISTORY: right flank pain pain COMPARISON STUDY: 05/11/2017 FINDINGS: Nonobstructive bowel pattern. Clips scattered throughout the mid and upper abdomen. No significant nephrocalcinosis within limitations of overlying bowel content. IMPRESSION: Postoperative change is noted. No acute process. The above report was generated using voice recognition software. It may contain grammatical, syntax or spelling errors. Electronically signed by: Agus Stephenson M.D. 07/19/2017 2:05 PM Dictated Date/Time: 07/19/2017 2:[address] OF THE ABDOMEN AND PELVIS WITHOUT CONTRAST, STONE PROTOCOL CLINICAL HISTORY: Right flank pain. COMPARISON STUDY: CT of the abdomen and pelvis March 07, 2017 and KUB July 19, 2017. TECHNIQUE: Helical axial images of the abdomen and pelvis were obtained without IV or oral contrast according to renal stone protocol. A dose lowering technique was utilized adhering to the principles of ALARA. FINDINGS: Lung bases are clear. 2 right renal calculi measure up to 4 mm. No ureteral calculus or present. There is no hydronephrosis or hydroureter. There is a punctate calculus within the lower pole the left kidney. Postoperative findings consistent with a subtotal colectomy are noted. There is no evidence for a bowel obstruction. No ascites is present. No pneumatosis, free air or portal venous gas is present. Evaluation of the abdomen is suboptimal on this unenhanced exam. The liver, spleen, adrenal glands and pancreas are unremarkable. There is no biliary ductal dilatation status post cholecystectomy. There are no suspicious osseous lesions. IMPRESSION: 1. Bilateral nephrolithiasis. No ureteral calculi or hydronephrosis. 2. No acute process within the abdomen or pelvis on unenhanced exam. 3. Status post subtotal colectomy. No bowel obstruction. Electronically signed by: Kike Aguilera M.D. 07/19/2017 3:32 PM Dictated Date/Time: 07/19/2017 3:22 PM Laboratory Results 07/19/17 13:40 Red Blood Count 5.01, Mean Corpuscular Volume 87.0, Mean Corpuscular Hemoglobin 30.5, Mean Corpuscular Hemoglobin Concent 35.1, Mean Platelet Volume 9.8, Neutrophils (%) (Auto) 58.6, Lymphocytes (%) (Auto) 29.1, Monocytes (%) (Auto) 7.2, Eosinophils (%) (Auto) 4.2, Basophils (%) (Auto) 0.8, Neutrophils # (Auto) 4.44, Lymphocytes # (Auto) 2.21, Monocytes # (Auto) 0.55, Eosinophils # (Auto) 0.32, Basophils # (Auto) 0.06 07/19/17 13:40 Test 07/19/17 13:40 White Blood Count 7.59 K/uL (4.8-10.8) Red Blood Count 5.01 M/uL (4.2-5.4) Hemoglobin 15.3 g/dL (12.0-16.0) Hematocrit 43.6 % (37-47) Mean Corpuscular Volume 87.0 fL (80-100) Mean Corpuscular Hemoglobin 30.5 pg (25-34) Mean Corpuscular Hemoglobin Concent 35.1 g/dl (32-36) Platelet Count 282 K/uL (130-400) Mean Platelet Volume 9.8 fL (7.4-10.4) Neutrophils (%) (Auto) 58.6 % Lymphocytes (%) (Auto) 29.1 % Monocytes (%) (Auto) 7.2 % Eosinophils (%) (Auto) 4.2 % Basophils (%) (Auto) 0.8 % Neutrophils # (Auto) 4.44 K/uL (1.4-6.5) Lymphocytes # (Auto) 2.21 K/uL (1.2-3.4) Monocytes # (Auto) 0.55 K/uL (0.11-0.59) Eosinophils # (Auto) 0.32 K/uL (0-0.5) Basophils # (Auto) 0.06 K/uL (0-0.2) RDW Standard Deviation 42.3 fL (36.4-46.3) RDW Coefficient of Variation 13.4 % (11.5-14.5) Immature Granulocyte % (Auto) 0.1 % Immature Granulocyte # (Auto) 0.01 K/uL (0.00-0.02) Urine Color YELLOW Urine Appearance CLEAR (CLEAR) Urine pH 5.5 (4.5-7.5) Urine Specific [place] 1.011 (1.000-1.030) Urine Protein NEG (NEG) Urine Glucose (UA) NEG (NEG) Urine Ketones NEG (NEG) Urine Occult Blood NEG (NEG) Urine Nitrite NEG (NEG) Urine Bilirubin NEG (NEG) Urine Urobilinogen NEG (NEG) Urine Leukocyte Esterase NEG (NEG) Anion Gap 6.0 mmol/L (3-11) Est Creatinine Clear Calc Drug Dose 102.2 ml/min Estimated GFR () 80.6 Estimated GFR (Non- 69.6 BUN/Creatinine Ratio 13.9 (10-20) Calcium Level 9.5 mg/dl (8.5-10.1) Total Bilirubin 0.8 mg/dl (0.2-1) Aspartate Amino Transf (AST/SGOT) 14 U/L (15-37) Alanine Aminotransferase (ALT/SGPT) 30 U/L (12-78) Alkaline Phosphatase 92 U/L (45-117) Total Protein 8.1 gm/dl (6.4-8.2) Albumin 4.3 gm/dl (3.4-5.0) Globulin 3.8 gm/dl (2.5-4.0) Albumin/Globulin Ratio 1.1 (0.9-2) Medications Administered Medications (Trade) Dose Ordered Sig/Nicole Route Start Time Stop Time Status Last Admin Dose Admin Ketorolac Tromethamine (Toradol Inj) 30 mg NOW STAT IV 07/19/17 13:25 07/19/17 13:31 DC 07/19/17 13:43 30 MG Ondansetron HCl (Zofran Inj) 4 mg NOW STAT IV 07/19/17 13:25 07/19/17 13:31 DC 07/19/17 13:43 4 MG Sodium Chloride 1,000 ml @ 999 mls/hr Q1H1M STAT IV 07/19/17 13:25 07/19/17 14:25 DC 07/19/17 13:43 999 MLS/HR Morphine Sulfate (MoRPHine SULFATE INJ) 8 mg STK-MED ONCE .ROUTE 07/19/17 14:43 07/19/17 14:44 DC 07/19/17 14:43 8 MG ED Course The patient was seen and evaluated as above. IV access obtained, labs drawn. The patient was given 30 mg Toradol IV and 4 mg Zofran for her nausea. KUB performed. This was negative. The patient was reassessed and notes no improvement. She declined IV Tylenol. She does request more pain medication. I offered to perform an ultrasound versus CT scan due to the patient's severe pain. I discussed the benefits and risks associated. The patient agrees to have a CT scan performed. She was given 8 mg morphine for her pain. The patient was reassessed and is feeling significantly better. Her pain is now a 0. She states "I just could not get ahead of the pain with anything". I discussed the case with Dr. Zepeda. We are in agreement with the assessment and plan. Discharge instructions reviewed, the patient was discharged home in good condition. Medical Decision This is a 41-year-old female patient presents to the emergency department today complaining of significant right flank pain and nausea. The patient does have a history of kidney stones, and states her pain is consistent. While here in the emergency department her pain was very difficult to control without narcotics. After receiving 1 dose of morphine, the patient's pain completely subsided and she was completely pain-free. The patient's workup here in the emergency department was overall negative. There were no abnormalities on her labs or imaging to explain her pain. There was no leukocytosis, anemia, thrombocytopenia. Renal, hepatic functions and electrolytes were normal. Urinalysis was without any signs of infection or blood. KUB and CT scan of the abdomen and pelvis were normal. I suspect musculoskeletal versus renal colic versus recently passed stone or drug seeking behavior as the cause of the patient's complaints. She will not be given narcotics at this time, as there is no obvious cause for her symptoms. The patient was agreeable. All questions were answered to the patient's satisfaction. She was encouraged to continue to follow-up outpatient with her PCP, clerical transcriber, and urologist due to her complaints. The patient was agreeable. Etiologies such as renal colic, appendicitis, diverticulitis, mesenteric ischemia, aortic pathology, infections, inflammatory bowel disease, PUD, biliary pathology, UTI, drug-seeking, as well as others were entertained. The chart was completed utilizing [employer] Speech voice recognition software. Grammatical errors, random word insertions, pronoun errors, and incomplete sentences are an occasional consequence of this system due to software limitations, ambient noise, and hardware issues. Any formal questions or concerns about the content, text, or information contained within the body of this dictation should be directly addressed to the provider for clarification. [place] Drug Monitoring Program Search Results: patient reviewed within database, no issues identified Medication Reconcilliation Current Medication List: was personally reviewed by me Blood Pressure Screening Patient's blood pressure: Elevated blood pressure Blood pressure disposition: Elevated BP felt to be situational Impression Primary Impression: Right flank pain Departure Information Dispostion Home / Self-Care Condition GOOD Prescriptions Ondasetron Odt (ZOFRAN ODT) 4 Mg Tab 4 MG SL Q6H for Nausea, #6 TAB Prov: Itzel Iqbal PA-C 07/19/17 Referrals Yuan Christy M.D. (PCP) Patient Instructions ED Flank Pain Uncertain Cause, [facility] Additional Instructions You have been treated in the Emergency Department your flank pain. Laboratory results and imaging studies have ruled out any emergent causes for your abdominal pain which would warrant admission or surgery. You have received pain medicine in the emergency department which impairs your ability to operate a vehicle. It is illegal for you to drive after receiving these medicines. You have been prescribed Zofran to be used for any nausea or vomiting. Take as prescribed. For pain control, you can use the following [id number] medicines (if >12 yo): Ibuprofen(Motrin, Advil) may be used for fever or pain. Use 600mg every six hours as needed. Take with food. Avoid using more than 2400mg in a 24 hour period. Do not use 2400mg per day for more than three consecutive days without physician direction. Prolonged inappropriate use can lead to stomach upset or ulcers. (AND/OR) Acetaminophen(Tylenol) may be used for fever or pain. Use 1000mg every six hours as needed. Avoid using more than 3000mg in a 24 hour period. Drink plenty of water and stay well hydrated. As with any trip to the Emergency Department, you should follow-up with your Primary Care Provider from today's visit. Return to the emergency department if your symptoms persist despite treatment plan outlined above or if the following symptoms occur: increased fevers, chills , worsening nausea/vomiting, blood in your stool or urine.
[2017-07-19] MEDS ORDERED: HYDR12.55 PO (14:21)
[2017-07-19] MEDS ORDERED: MoRPHine SULFATE 10 MG/ML CARP/VIAL IV STA (14:40)
[2017-07-19] MEDS ORDERED: MoRPHine SULFATE 4 MG/ML 1 ML CARP\\VIAL ONE (14:43)
--- NOTE | 2017-07-19 15:34 | DIAGNOSTIC IMAGING REPORT ---
CT OF THE ABDOMEN AND PELVIS WITHOUT CONTRAST, STONE PROTOCOL CLINICAL HISTORY: Right flank pain. COMPARISON STUDY: CT of the abdomen and pelvis March 07, 2017 and KUB July 19, 2017. TECHNIQUE: Helical axial images of the abdomen and pelvis were obtained without IV or oral contrast according to renal stone protocol. A dose lowering technique was utilized adhering to the principles of ALARA. FINDINGS: Lung bases are clear. 2 right renal calculi measure up to 4 mm. No ureteral calculus or present. There is no hydronephrosis or hydroureter. There is a punctate calculus within the lower pole the left kidney. Postoperative findings consistent with a subtotal colectomy are noted. There is no evidence for a bowel obstruction. No ascites is present. No pneumatosis, free air or portal venous gas is present. Evaluation of the abdomen is suboptimal on this unenhanced exam. The liver, spleen, adrenal glands and pancreas are unremarkable. There is no biliary ductal dilatation status post cholecystectomy. There are no suspicious osseous lesions. IMPRESSION: 1. Bilateral nephrolithiasis. No ureteral calculi or hydronephrosis. 2. No acute process within the abdomen or pelvis on unenhanced exam. 3. Status post subtotal colectomy. No bowel obstruction. Electronically signed by: Kike Aguilera M.D. 07/19/2017 3:32 PM Dictated Date/Time: 07/19/2017 3:22 PM
[2017-07-19] MEDS ORDERED: ONDA4TAB10 SL (16:00)
[2017-07-19 16:16] VITALS: BP 124/76; PULSE 75; O2SAT 98
== END 2017-07-19 16:16 | disposition home or self-care (01) ==
LOC: C.EDB 12:33 → C.EDC 16:16
DX: R10.9 Unspecified abdominal pain (principal); R03.0 Elevated blood-pressure reading, without diagnosis of hypertension; R11.0 Nausea; F32.9 Major depressive disorder, single episode, unspecified; Z72.0 Tobacco use; Z79.3 Long term (current) use of hormonal contraceptives; Z79.899 Other long term (current) drug therapy; Z87.442 Personal history of urinary calculi

== ENCOUNTER → 2017-08-11 | Outpatient (CLI) | payer OTHER ==
[~2017-08-11] MED LIST changes: -DTR/5 PO; +HYDR12.55 PO; -OXYC1TAB3 PO; -SULF800T23 PO; -TAMS0.4C38 PO
--- NOTE | 2017-08-11 10:03 | DIAGNOSTIC IMAGING REPORT ---
(RENAL)RETROPERITON COMP CLINICAL HISTORY: 41 years-old Female presenting with N20.0 Nephrolithiasis. TECHNIQUE: Real-time grayscale and limited color Doppler ultrasound imaging of the kidneys and bladder was performed. COMPARISON: 05/02/[address] from 07/19/2017. FINDINGS: Right kidney: Normal echogenicity of renal parenchyma. Right kidney measures 12.3 cm. No hydronephrosis. 4 mm hyperechogenic focus in the upper pole to interpolar region, which may correlate with the calculus seen on CT from last month. Left kidney: Normal echogenicity of renal parenchyma. Left kidney measures 12.0 cm. No hydronephrosis. No convincing evidence of calculus or mass. Bladder: Normal. Bilateral ureteral jets present. Other: None. IMPRESSION: 1. 4 mm suspected right renal calculus, likely correlating with the finding on most recent CT. Otherwise normal renal ultrasound. No obstruction. Electronically signed by: Bobo Mancilla M.D. 08/11/2017 10:02 AM Dictated Date/Time: 08/11/2017 9:59 AM
[2017-08-11 12:34] LABS: ALBUMIN 3.8 gm/dl (3.4-5.0); BLOOD UREA NITROGEN 13 mg/dl (7-18); CALCIUM 8.7 mg/dl (8.5-10.1); CARBON DIOXIDE 31 mmol/L (21-32); CREATININE 0.95 mg/dl (0.60-1.20); GLUCOSE 70 mg/dl (70-99); PHOSPHORUS 2.9 mg/dl (2.5-4.9); POTASSIUM 3.2 mmol/L (3.5-5.1); SODIUM 139 mmol/L (136-145)
== END | disposition home or self-care (01) ==
LOC: C.ULTR 09:19
PROVIDERS: ATTEND Urology
DX: N20.0 Calculus of kidney (principal)

== ENCOUNTER 2017-11-14 12:29 | Emergency (ER) | payer OTHER ==
[~2017-11-14] VITALS: Ht 182.9 cm; Wt 109.0 kg
[2017-11-14 12:33] VITALS: TEMP 36.8; Ht 182.9 cm; Wt 109.0 kg
[2017-11-14] MEDS ORDERED: ONDANSETRON INJ 2 MG/ML 2 ML VIAL IV STA (12:46)
[2017-11-14] MEDS ORDERED: SODIUM CHLORIDE 0.9% 500ML 500 ML IV STA (12:46)
[2017-11-14] MEDS ORDERED: KETOROLAC TROMETHAMINE 30 MG/ML VIAL IV STA (12:46)
--- NOTE | 2017-11-14 12:59 | EMERGENCY ROOM VISIT NOTE ---
History Report prepared by [place]: Stephane Downey Under the Supervision of: Dr. Rene Aguirre M.D. First contact with patient: 12:37 Chief Complaint: FLANK PAIN Stated Complaint: RT KIDNEY PAIN, NAUSEA, SWELLING History of Present Illness The patient is a 42 year old female who presents to the Emergency Room with complaints of sharp right flank pain worsening since one week ago. The patient reports that the pain is constant and occasionally radiates to the front. She denies trauma or strain. She notes nausea since yesterday, but denies vomiting. She states that she is experiencing a small amount of burning with urination and that her bladder "feels like it's never empty." She notes this morning she strained for her soft bowel movement, which is abnormal for her. She reports that she tried Tylenol with no improvement. The patient notes a history of kidney stones, and sees Dr. Carbajal for it. Source of History: patient Onset: one week ago Position: other (right flank) Quality: sharp Timing: worsening Associated Symptoms: + nausea, No vomiting Note: pain occasionally radiates to the front, slight burning with urination denies strain or trauma Review of Systems See HPI for pertinent positives and negatives. A total of ten systems were reviewed and were otherwise negative. Past Medical & Surgical Medical Problems: (1) Depression (2) History of cocaine dependence (3) Kidney stones (4) Nephrolithiasis (5) Pyelonephritis Family History Cancer Diabetes mellitus FHx: gallbladder disease Heart disease Hypertension Kidney stones Social History Smoking Status: Current Some Day Smoker Alcohol Use: none Drug Use: none Marital Status: single Occupation Status: employed Current/Historical Medications Scheduled Amphetamine-Dextroamphetamine 30MG (Adderall Xr 30MG), 30 MG PO QAM Amphetamine-Dextroamphetamine 30MG (Adderall 30MG), 30 MG PO QAFTERNOON Hydrochlorothiazide (Hydrochlorothiazide), 25 MG PO DAILY Potassium Ext Rel (Klor-Con), 1 TAB PO DAILY Tamsulosin Hcl (Flomax), 0.4 MG PO HS Scheduled PRN Albuterol Hfa (Ventolin Hfa), 2 PUFFS INH Q6H PRN for SOB/Wheezing Ondansetron Hcl (Zofran), 4 MG PO Q8H PRN for Nausea Oxycodone Immediate Rel Tab (Roxicodone Ir), 5 MG PO Q6H PRN for Pain Allergies Coded Allergies: Tramadol (Verified Adverse Reaction, Intermediate, N/V, 11/14/17) Physical Exam Vital Signs Date Time Temp Pulse Resp B/P (MAP) Pulse Ox O2 Delivery O2 Flow Rate FiO2 11/14/17 14:28 78 16 132/79 100 Room Air 11/14/17 13:33 72 121/66 100 Room Air 11/14/17 12:33 36.8 82 16 137/83 100 Room Air Physical Exam GENERAL: Awake, alert, uncomfortable and in pain HENT: Normocephalic, atraumatic. EYES: Normal conjunctiva. Sclera non-icteric. PERRL. No anisocoria. NECK: Supple. No nuchal rigidity. FROM. RESPIRATORY: CTAB, no rhonchi, wheezing, crackles CARDIAC: RRR, no MRG ABDOMEN: Soft, NTND, BS+ BACK: Righted-sided CVA TTP MSK: No chest wall TTP, no LE edema NEURO: GCS 15, CN 2-12 intact, moves all 4s on command SKIN: No rash or jaundice noted. Medical Decision & Procedures ER Provider Diagnostic Interpretation: Radiology results as stated below per my review and radiologist interpretation: KUB HISTORY: Acute hematuria with right-sided flank pain Flank pain COMPARISON: CT abdomen and pelvis and KUB 07/19/2017. FINDINGS: The bowel gas pattern is non-obstructive. There is no organomegaly. Surgical suture material noted within the right midabdomen and abdominal left upper quadrant. No definite renal or ureteral calculi are identified. Previously noted 4 mm nonobstructing calculus of the superior pole right kidney is not definitively seen. Phleboliths about the pelvis. No renal calculi. No ureteral calculi. No pneumoperitoneum or pneumatosis. No fracture. Mild convex right curvature about the mid lumbar spine. IMPRESSION: No definite renal or ureteral calculi identified. Electronically signed by: Arturo Valencia M.D. 11/14/2017 2:31 PM Dictated Date/Time: 11/14/2017 2:28 PM Laboratory Results 11/14/17 13:30 Red Blood Count 4.67, Mean Corpuscular Volume 86.9, Mean Corpuscular Hemoglobin 30.4, Mean Corpuscular Hemoglobin Concent 35.0, Mean Platelet Volume 9.7, Neutrophils (%) (Auto) 68.2, Lymphocytes (%) (Auto) 19.9, Monocytes (%) (Auto) 8.4, Eosinophils (%) (Auto) 2.9, Basophils (%) (Auto) 0.5, Neutrophils # (Auto) 5.68, Lymphocytes # (Auto) 1.66, Monocytes # (Auto) 0.70, Eosinophils # (Auto) 0.24, Basophils # (Auto) 0.04 11/14/17 13:30 Test 11/14/17 13:30 11/14/17 14:55 White Blood Count 8.33 K/uL (4.8-10.8) Red Blood Count 4.67 M/uL (4.2-5.4) Hemoglobin 14.2 g/dL (12.0-16.0) Hematocrit 40.6 % (37-47) Mean Corpuscular Volume 86.9 fL (80-100) Mean Corpuscular Hemoglobin 30.4 pg (25-34) Mean Corpuscular Hemoglobin Concent 35.0 g/dl (32-36) Platelet Count 272 K/uL (130-400) Mean Platelet Volume 9.7 fL (7.4-10.4) Neutrophils (%) (Auto) 68.2 % Lymphocytes (%) (Auto) 19.9 % Monocytes (%) (Auto) 8.4 % Eosinophils (%) (Auto) 2.9 % Basophils (%) (Auto) 0.5 % Neutrophils # (Auto) 5.68 K/uL (1.4-6.5) Lymphocytes # (Auto) 1.66 K/uL (1.2-3.4) Monocytes # (Auto) 0.70 K/uL (0.11-0.59) Eosinophils # (Auto) 0.24 K/uL (0-0.5) Basophils # (Auto) 0.04 K/uL (0-0.2) RDW Standard Deviation 42.0 fL (36.4-46.3) RDW Coefficient of Variation 13.3 % (11.5-14.5) Immature Granulocyte % (Auto) 0.1 % Immature Granulocyte # (Auto) 0.01 K/uL (0.00-0.02) Anion Gap 10.0 mmol/L (3-11) Est Creatinine Clear Calc Drug Dose 105.4 ml/min Estimated GFR () 84.1 Estimated GFR (Non- 72.5 BUN/Creatinine Ratio 17.7 (10-20) Calcium Level 8.7 mg/dl (8.5-10.1) Total Bilirubin 0.8 mg/dl (0.2-1) Direct Bilirubin 0.3 mg/dl (0-0.2) Aspartate Amino Transf (AST/SGOT) 19 U/L (15-37) Alanine Aminotransferase (ALT/SGPT) 28 U/L (12-78) Alkaline Phosphatase 92 U/L (45-117) Total Protein 7.6 gm/dl (6.4-8.2) Albumin 4.0 gm/dl (3.4-5.0) Lipase 122 U/L (73-393) Urine Color YELLOW Urine Appearance CLEAR (CLEAR) Urine pH 5.5 (4.5-7.5) Urine Specific [place] 1.016 (1.000-1.030) Urine Protein NEG (NEG) Urine Glucose (UA) NEG (NEG) Urine Ketones TRACE (NEG) Urine Occult Blood NEG (NEG) Urine Nitrite NEG (NEG) Urine Bilirubin NEG (NEG) Urine Urobilinogen NEG (NEG) Urine Leukocyte Esterase NEG (NEG) Urine WBC (Auto) 0 /hpf (0-5) Urine RBC (Auto) 0-4 /hpf (0-4) Urine Hyaline Casts (Auto) 1-5 /lpf (0-5) Urine Epithelial Cells (Auto) 0-5 /lpf (0-5) Urine Bacteria (Auto) NEG (NEG) Urine Test NEG (NEG) Laboratory results reviewed by me Medications Administered Medications (Trade) Dose Ordered Sig/Nicole Route Start Time Stop Time Status Last Admin Dose Admin Ondansetron HCl (Zofran Inj) 4 mg NOW STAT IV 11/14/17 12:46 11/14/17 12:50 DC 11/14/17 13:33 4 MG Ketorolac Tromethamine (Toradol Inj) 30 mg NOW STAT IV 11/14/17 12:46 11/14/17 12:50 DC 11/14/17 13:33 30 MG Sodium Chloride 500 ml @ 999 mls/hr Q31M STAT IV 11/14/17 12:46 11/14/17 13:16 DC 11/14/17 12:46 999 MLS/HR Morphine Sulfate (MoRPHine SULFATE INJ) 4 mg NOW STAT IV 11/14/17 14:13 11/14/17 14:14 DC 11/14/17 14:25 4 MG ED Course 1243: The patient was evaluated in room B8. A complete history and physical exam was performed. 1602: I reevaluated the patient. Discussed results and discharge instructions: She verbalized understanding and agreement. The patient is ready for discharge. Medical Decision Nursing notes reviewed. Ancillary studies and prior records reviewed. The patient is a 42 year old female who presents to the Emergency Room with complaints of sharp right flank pain worsening since one week ago. Differential diagnosis: Etiologies such as renal colic, appendicitis, diverticulitis, mesenteric ischemia, aortic pathology, infections, inflammatory bowel disease, PUD, biliary pathology, UTI, as well as others were entertained. Patient was seen and evaluated the bedside. Patient has had about a week of symptoms with associated nausea beginning yesterday. Patient is competent right -sided flank pain occasionally radiates to the front of her abdomen. Patient has not had any vomiting or trauma. Patient does have a known history of kidney stones. Patient denies any hematuria. Patient did have blood work completed along with KUB and the patient was given medications for symptom control. Patient has normal white blood cell count normal H&H and platelet count. Patient has normal kidney function. Patient's KUB did not show any evidence of nephrolithiasis. UA is negative for blood or infection. Patient has normal white blood cell count skin H&H and platelet count. Given this I believe she is suitable for outpatient follow-up treatment at this time especially she is feeling improved. In the patient's known history of kidney stones will presumptively treat for kidney stone. I did have a discussion with the patient about narcotic use. Patient was deemed suitable for outpatient follow-up and treatment at this time and was told to follow-up with her urologist as well as PCP as needed. Patient was given strict follow-up, discharge, and return precautions. All questions were answered. Patient was deemed suitable for outpatient follow-up at this time. Patient agreed with the plan of care and was safely discharged home. [place] Drug Monitoring Program Search Results: patient reviewed within database Drug Monitoring Findings: The patient has not received controlled pain medication since February 2017. Medication Reconcilliation Current Medication List: was personally reviewed by me Blood Pressure Screening Patient's blood pressure: Normal blood pressure Blood pressure disposition: Did not require urgent referral Impression Primary Impression: Right flank pain Additional Impressions: Renal colic Encounter for smoking cessation counseling Scribe Attestation The scribe's documentation has been prepared under my direction and personally reviewed by me in its entirety. I confirm that the note above accurately reflects all work, treatment, procedures, and medical decision making performed by me. Departure Information Dispostion Home / Self-Care Prescriptions Ondansetron Hcl (ZOFRAN) 4 Mg Tab 4 MG PO Q8H Y for Nausea, #12 TAB Prov: Rene Aguirre M.D. 11/14/17 Oxycodone Immediate Rel Tab (ROXICODONE IR) 5 Mg Tab 5 MG PO Q6H Y for Pain, #12 TAB Prov: Rene Aguirre M.D. 11/14/17 Tamsulosin Hcl (FLOMAX) 0.4 Mg Cap 0.4 MG PO HS for 10 Days, #10 CAP Prov: Rene Aguirre M.D. 11/14/17 Referrals No Doctor, Assigned (PCP) Forms HOME CARE DOCUMENTATION FORM, IMPORTANT VISIT INFORMATION Patient Instructions ED Smoking Cessation, ED Stone Renal W Colic, [facility] Additional Instructions Please return to the emergency department if you have worsening or recurrent symptoms not amenable to at-home treatment. Please call for a follow-up appointment with her primary care physician. Please take your medications as prescribed. If you have other concerns and/or complaints please feel free to also call your primary care physician's office or return the ED for further evaluation, management, and treatment. You received narcotic or benzodiazepene medication while in the emergency room today. This is an addictive medication that may cause drowziness as well as constipation. Do not drive, operate heavy machinery, or drink alcohol under the influence of this medication. You may take 600 mg Ibuprofen every 6 hours as needed for pain/fever with food unless told by your physician not to take NSAIDs. You may take tylenol 650 mg every 6 hours as needed for pain/fever unless told by your physician to not take it or have liver problems. You may take motrin and tylenol separately or at the same time. Take your medications as prescribed. If you still have discomfort you may take the narcotic medication. Please be advised that these medications are habit forming, can make you sleepy, and can cause breathing issues. Do not use if you require your full attention. Take only as prescribed. Take your Flomax in the evening before bed as it can cause some lightheadedness. You have been examined and treated today on an emergency basis only. This is not a substitute for, or an effort to provide, complete comprehensive medical care. It is impossible to recognize and treat all injuries or illnesses in a single emergency department visit. It is therefore important that you follow up closely with [facility], your PCP, and/or your specialist(s). Call as soon as possible for an appointment. Thank you for your time and consideration. I look forward to speaking with you again soon. Please don't hesitate to call us if you have any questions. Problem Qualifiers
[2017-11-14 13:34] LABS: BASO % 0.5 %; BASO ABS # 0.04 K/uL (0-0.2); EOS % 2.9 %; EOS ABS # 0.24 K/uL (0-0.5); HEMATOCRIT 40.6 % (37-47); HEMOGLOBIN 14.2 g/dL (12.0-16.0); IG# 0.01 K/uL (0.00-0.02); LYMPH % 19.9 %; LYMPH ABS # 1.66 K/uL (1.2-3.4); MEAN CELL VOLUME 86.9 fL (80-100); MEAN CORPUSCULAR HEMOGLOBIN 30.4 pg (25-34); MEAN PLATELET VOLUME 9.7 fL (7.4-10.4); MONO % 8.4 %; NEUT % 68.2 %; NEUT ABS # 5.68 K/uL (1.4-6.5); PLATELET COUNT 272 K/uL (130-400); RED CELL DISTRIBUTION WIDTH CV 13.3 % (11.5-14.5); WHITE BLOOD COUNT 8.33 K/uL (4.8-10.8)
[2017-11-14 13:56] LABS: CALCIUM 8.7 mg/dl (8.5-10.1); CREATININE 0.97 mg/dl (0.60-1.20); TOTAL PROTEIN 7.6 gm/dl (6.4-8.2)
[2017-11-14] MEDS ORDERED: MoRPHine SULFATE 4 MG/ML 1 ML CARP\\VIAL IV STA (14:13)
--- NOTE | 2017-11-14 14:32 | DIAGNOSTIC IMAGING REPORT ---
KUB HISTORY: Acute hematuria with right-sided flank pain Flank pain COMPARISON: CT abdomen and pelvis and KUB 07/19/2017. FINDINGS: The bowel gas pattern is non-obstructive. There is no organomegaly. Surgical suture material noted within the right midabdomen and abdominal left upper quadrant. No definite renal or ureteral calculi are identified. Previously noted 4 mm nonobstructing calculus of the superior pole right kidney is not definitively seen. Phleboliths about the pelvis. No renal calculi. No ureteral calculi. No pneumoperitoneum or pneumatosis. No fracture. Mild convex right curvature about the mid lumbar spine. IMPRESSION: No definite renal or ureteral calculi identified. Electronically signed by: Arturo Valencia M.D. 11/14/2017 2:31 PM Dictated Date/Time: 11/14/2017 2:28 PM
[2017-11-14] MEDS ORDERED: POTA-639 PO (14:35)
[2017-11-14] MEDS ORDERED: HYDR25TA5 PO (14:35)
[2017-11-14] MEDS ORDERED: VNTHFA/IN INH (14:36)
[2017-11-14] MEDS ORDERED: TAMS0.4C38 PO (16:08)
[2017-11-14] MEDS ORDERED: OXYC-737 PO (16:08)
[2017-11-14] MEDS ORDERED: ONDA4TAB46 PO (16:08)
[2017-11-14 16:25] VITALS: BP 133/74; PULSE 78; O2SAT 98
== END 2017-11-14 16:26 | disposition home or self-care (01) ==
LOC: C.EDB 12:30
DX: R10.84 Generalized abdominal pain (principal); N23 Unspecified renal colic; F32.9 Major depressive disorder, single episode, unspecified; F17.200 Nicotine dependence, unspecified, uncomplicated; Z88.5 Allergy status to narcotic agent